=== PATIENT | male | born 1945 | race Caucasian/White ===

== ENCOUNTER → 2016-12-05 | Outpatient (REF) | payer MEDICARE, OTHER ==
[2016-12-05 16:50] LABS: BASO % 0.4 % (0.0-1.0); EOS # 0.1 K/mm3 (0.0-0.50); EOS % 1.9 % (0.0-3.0); LARGE UNSTAINED CELL # 0.1 K/mm3 (0.0-0.4); LARGE UNSTAINED CELL % 1.7 % (0.0-4.0); LYMPH # 2.3 K/mm3 (1.5-4.5); LYMPH % 36.2 % (24.0-44.0); MEAN CORPUSCULAR HEMOGLOBIN 32.9 pg (27.0-33.0); MEAN CORPUSCULAR HGB CONC 34.3 g/dl (32.0-36.5); MEAN CORPUSCULAR VOLUME 95.9 fl (80.0-96.0); MONO # 0.3 K/mm3 (0.0-0.8); MONO % 5.4 % (0.0-5.0); NEUTROPHILS # 3.4 K/mm3 (1.8-7.7); NEUTROPHILS % 54.4 % (36.0-66.0); PLATELET COUNT, AUTOMATED 238 k/mm3 (150-450); WHITE BLOOD COUNT 6.2 K/mm3 (4.0-10.0)
[2016-12-05 18:06] LABS: ALBUMIN 3.5 GM/DL (3.2-5.2); ALBUMIN/GLOBULIN RATIO 1.13 (1.00-1.93); ALKALINE PHOSPHATASE 75 U/L (45-117); ALT/SGPT 28 U/L (12-78); ANION GAP 7 MEQ/L (8-16); AST/SGOT 17 U/L (15-37); BILIRUBIN,TOTAL 0.5 MG/DL (0.2-1.0); BLOOD UREA NITROGEN 15 MG/DL (7-18); CALCIUM LEVEL 8.6 MG/DL (8.8-10.2); CARBON DIOXIDE LEVEL 27 MEQ/L (21-32); CHLORIDE LEVEL 109 MEQ/L (98-107); CHOLESTEROL LEVEL 176 MG/DL (<200); CREATININE FOR GFR 0.89 MG/DL (0.70-1.30); FREE T4 0.89 NG/DL (0.76-1.46); GLOMERULAR FILTRATION RATE > 60.0 (>42); GLUCOSE, FASTING 101 MG/DL (83-110); POTASSIUM SERUM 4.2 MEQ/L (3.5-5.1); SODIUM LEVEL 143 MEQ/L (136-145); TOTAL PROTEIN 6.6 GM/DL (6.4-8.2); TRIGLYCERIDES LEVEL 55 MG/DL (<150)
== END ==
LOC: M SFHCCAPE 10:44
PROVIDERS: ATTEND Physician Assistant
DX: R42 Dizziness and giddiness (principal); R11.0 Nausea; Z79.899 Other long term (current) drug therapy

== ENCOUNTER → 2017-04-20 | Outpatient (REF) | payer MEDICARE, OTHER | LOC: M SMT 17:12 | PROVIDERS: ATTEND Urology | DX: Z12.5 Encounter for screening for malignant neoplasm of prostate (principal) | CPT/HCPCS: 36415; G0103 ==

== ENCOUNTER → 2017-05-08 | Outpatient (REF) | payer MEDICARE, OTHER | LOC: M SMT 17:01 | PROVIDERS: ATTEND Urology | DX: Z85.51 Personal history of malignant neoplasm of bladder (principal) ==

== ENCOUNTER → 2017-05-11 | Outpatient (REF) | payer MEDICARE, OTHER ==
[2017-05-11 17:35] LABS: BASO % 0.3 % (0.0-1.0); EOS # 0.1 10^3/uL (0.0-0.50); EOS % 0.9 % (0.0-3.0); IMMATURE GRANULOCYTE % 0.6 % (0-0); LYMPH % 21.7 % (24.0-44.0); MEAN CORPUSCULAR HGB CONC 34.1 g/dl (32.0-36.5); MEAN CORPUSCULAR VOLUME 90.9 fl (80.0-96.0); MONO # 0.7 10^3/uL (0.0-0.8); MONO % 7.9 % (0.0-5.0); NEUTROPHILS # 6.2 10^3/uL (1.8-7.7); NEUTROPHILS % 68.6 % (36.0-66.0); PLATELET COUNT, AUTOMATED 316 10^3/uL (150-450); RED CELL DISTRIBUTION WIDTH 14.2 % (11.5-14.5)
[2017-05-11 18:20] LABS: VITAMIN B12 LEVEL > 2000 PG/ML (247-911)
[2017-05-11 18:26] LABS: ALBUMIN 3.8 GM/DL (3.2-5.2); ALBUMIN/GLOBULIN RATIO 1.09 (1.00-1.93); ALKALINE PHOSPHATASE 86 U/L (45-117); ALT/SGPT 18 U/L (12-78); ANION GAP 12 MEQ/L (8-16); AST/SGOT 14 U/L (7-37); BILIRUBIN,TOTAL 0.7 MG/DL (0.2-1.0); BLOOD UREA NITROGEN 14 MG/DL (7-18); CARBON DIOXIDE LEVEL 24 MEQ/L (21-32); CHLORIDE LEVEL 103 MEQ/L (98-107); GLOMERULAR FILTRATION RATE > 60.0 (>42); GLUCOSE, FASTING 123 MG/DL (83-110); POTASSIUM SERUM 3.8 MEQ/L (3.5-5.1); SODIUM LEVEL 139 MEQ/L (136-145); THYROXINE (T4) 7.3 UG/DL (4.5-12.0); TOTAL PROTEIN 7.3 GM/DL (6.4-8.2)
== END ==
LOC: M SFHCCAPE 11:14
PROVIDERS: ATTEND Family Medicine
DX: I10 Essential (primary) hypertension (principal); Z13.21 Encounter for screening for nutritional disorder

== ENCOUNTER → 2017-11-15 | Outpatient (REF) | payer MEDICARE, OTHER ==
[2017-11-15 16:42] LABS: BASO % 0.4 % (0.0-1.0); EOS # 0.1 10^3/uL (0.0-0.50); EOS % 1.5 % (0.0-3.0); HEMATOCRIT 41.2 % (42.0-52.0); HEMOGLOBIN 13.6 g/dl (13.5-17.5); IMMATURE GRANULOCYTE % 0.4 % (0-3.0); LYMPH # 1.8 10^3/uL (1.5-4.5); LYMPH % 21.4 % (24.0-44.0); MEAN CORPUSCULAR VOLUME 93.8 fl (80.0-96.0); MONO # 0.7 10^3/uL (0.0-0.8); NEUTROPHILS # 5.6 10^3/uL (1.8-7.7); NEUTROPHILS % 68.3 % (36.0-66.0); PLATELET COUNT, AUTOMATED 286 10^3/uL (150-450); RED BLOOD COUNT 4.39 10^6/uL (4.30-6.10); RED CELL DISTRIBUTION WIDTH 13.2 % (11.5-14.5); WHITE BLOOD COUNT 8.2 10^3/uL (4.0-10.0)
[2017-11-15 16:56] LABS: VITAMIN B12 LEVEL 859 PG/ML (247-911)
[2017-11-15 17:01] LABS: ALBUMIN 3.7 GM/DL (3.2-5.2); ALBUMIN/GLOBULIN RATIO 1.28 (1.00-1.93); ALKALINE PHOSPHATASE 68 U/L (45-117); ALT/SGPT 22 U/L (12-78); ANION GAP 9 MEQ/L (8-16); AST/SGOT 14 U/L (7-37); BILIRUBIN,TOTAL 0.7 MG/DL (0.2-1.0); BLOOD UREA NITROGEN 13 MG/DL (7-18); CALCIUM LEVEL 8.8 MG/DL (8.8-10.2); CARBON DIOXIDE LEVEL 26 MEQ/L (21-32); CHLORIDE LEVEL 105 MEQ/L (98-107); CREATININE FOR GFR 1.01 MG/DL (0.70-1.30); GLOMERULAR FILTRATION RATE > 60.0 (>42); GLUCOSE, FASTING 116 MG/DL (70-100); POTASSIUM SERUM 3.8 MEQ/L (3.5-5.1); SODIUM LEVEL 140 MEQ/L (136-145); TOTAL PROTEIN 6.6 GM/DL (6.4-8.2)
== END ==
LOC: M SFHCCAPE 09:45
DX: I10 Essential (primary) hypertension (principal); R53.83 Other fatigue; R61 Generalized hyperhidrosis; R53.82 Chronic fatigue, unspecified
CPT/HCPCS: 84443

== ENCOUNTER → 2018-03-01 | Outpatient (REF) | payer MEDICARE, OTHER ==
[2018-03-02 11:33] LABS: BASO % 0.6 % (0.0-1.0); EOS # 0.2 10^3/uL (0.0-0.50); EOS % 2.3 % (0.0-3.0); HEMATOCRIT 42.9 % (42.0-52.0); IMMATURE GRANULOCYTE % 0.3 % (0-3.0); LYMPH % 28.4 % (24.0-44.0); MEAN CORPUSCULAR HGB CONC 32.6 g/dl (32.0-36.5); MEAN CORPUSCULAR VOLUME 95.1 fl (80.0-96.0); MONO # 0.7 10^3/uL (0.0-0.8); MONO % 9.6 % (0.0-5.0); NEUTROPHILS # 4.1 10^3/uL (1.8-7.7); NEUTROPHILS % 58.8 % (36.0-66.0); PLATELET COUNT, AUTOMATED 269 10^3/uL (150-450); RED BLOOD COUNT 4.51 10^6/uL (4.30-6.10); WHITE BLOOD COUNT 6.9 10^3/uL (4.0-10.0)
[2018-03-02 13:01] LABS: ALBUMIN 3.5 GM/DL (3.2-5.2); ALBUMIN/GLOBULIN RATIO 1.09 (1.00-1.93); ALKALINE PHOSPHATASE 82 U/L (45-117); ALT/SGPT 24 U/L (12-78); ANION GAP 10 MEQ/L (8-16); AST/SGOT 17 U/L (7-37); BILIRUBIN,TOTAL 0.4 MG/DL (0.2-1.0); BLOOD UREA NITROGEN 18 MG/DL (7-18); CALCIUM LEVEL 8.9 MG/DL (8.8-10.2); CARBON DIOXIDE LEVEL 27 MEQ/L (21-32); CHLORIDE LEVEL 106 MEQ/L (98-107); CREATININE FOR GFR 0.95 MG/DL (0.70-1.30); GLOMERULAR FILTRATION RATE > 60.0 (>42); GLUCOSE, FASTING 87 MG/DL (70-100); MAGNESIUM LEVEL 2.1 MG/DL (1.8-2.4); POTASSIUM SERUM 4.4 MEQ/L (3.5-5.1); SODIUM LEVEL 143 MEQ/L (136-145); TOTAL PROTEIN 6.7 GM/DL (6.4-8.2)
[2018-03-02 14:36] LABS: ESTIMATED AVERAGE GLUCOSE 108 MG/DL (60-110); HEMOGLOBIN A1c 5.4 %
== END ==
LOC: M SFHCCLAY 13:54
DX: R73.01 Impaired fasting glucose (principal); I10 Essential (primary) hypertension; A09 Infectious gastroenteritis and colitis, unspecified
CPT/HCPCS: 83735

== ENCOUNTER → 2018-03-09 | Outpatient (REF) | payer MEDICARE, OTHER | LOC: M LAB REF 17:43 | DX: R19.7 Diarrhea, unspecified (principal) | CPT/HCPCS: 87507 ==

== ENCOUNTER → 2018-05-08 | Outpatient (REF) | payer MEDICARE, OTHER | LOC: M SMT 18:00 | DX: Z85.51 Personal history of malignant neoplasm of bladder (principal) | CPT/HCPCS: 88108 ==

== ENCOUNTER → 2018-08-28 | Outpatient (REF) | payer MEDICARE, OTHER ==
[2018-08-28 16:47] LABS: BASO % 0.6 % (0.0-1.0); EOS # 0.2 10^3/uL (0.0-0.50); EOS % 3.9 % (0.0-3.0); HEMATOCRIT 41.3 % (42.0-52.0); HEMOGLOBIN 13.7 g/dl (13.5-17.5); LYMPH # 1.9 10^3/uL (1.5-4.5); LYMPH % 30.9 % (24.0-44.0); MEAN CORPUSCULAR HEMOGLOBIN 31.1 pg (27.0-33.0); MEAN CORPUSCULAR HGB CONC 33.2 g/dl (32.0-36.5); MEAN CORPUSCULAR VOLUME 93.7 fl (80.0-96.0); MONO # 0.7 10^3/uL (0.0-0.8); MONO % 10.8 % (0.0-5.0); NEUTROPHILS # 3.3 10^3/uL (1.8-7.7); NEUTROPHILS % 53.5 % (36.0-66.0); PLATELET COUNT, AUTOMATED 237 10^3/uL (150-450); RED BLOOD COUNT 4.41 10^6/uL (4.30-6.10); WHITE BLOOD COUNT 6.2 10^3/uL (4.0-10.0)
[2018-08-28 16:57] LABS: ALBUMIN 3.3 GM/DL (3.2-5.2); ALT/SGPT 21 U/L (12-78); BILIRUBIN,TOTAL 0.4 MG/DL (0.2-1.0); BLOOD UREA NITROGEN 18 MG/DL (7-18); CALCIUM LEVEL 8.5 MG/DL (8.8-10.2); CARBON DIOXIDE LEVEL 27 MEQ/L (21-32); CHLORIDE LEVEL 109 MEQ/L (98-107); CHOLESTEROL LEVEL 226 MG/DL (<200); CHOLESTEROL RISK RATIO 4.264 (<5); CREATININE FOR GFR 0.95 MG/DL (0.70-1.30); GLOMERULAR FILTRATION RATE > 60.0 (>42); GLUCOSE, FASTING 99 MG/DL (70-100); HDL CHOLESTEROL 53 MG/DL (>40); LDL CHOLESTEROL 151 MG/DL (<100); NON-HDL-C 173 MG/DL; POTASSIUM SERUM 4.1 MEQ/L (3.5-5.1); SODIUM LEVEL 143 MEQ/L (136-145); TOTAL PROTEIN 6.1 GM/DL (6.4-8.2); TRIGLYCERIDES LEVEL 111 MG/DL (<150)
[2018-08-28 17:35] LABS: HEMOGLOBIN A1c 5.6 %
== END ==
LOC: M SFHCCAPE 07:16
PROVIDERS: ATTEND Family Medicine
DX: I10 Essential (primary) hypertension (principal); R53.82 Chronic fatigue, unspecified; R73.01 Impaired fasting glucose; E78.5 Hyperlipidemia, unspecified

== ENCOUNTER → 2018-10-31 | Outpatient (REF) | payer MEDICARE, OTHER | LOC: M LAB REF 16:45 | PROVIDERS: ATTEND Internal Medicine Gastroenterology | DX: R19.7 Diarrhea, unspecified (principal) ==

== ENCOUNTER → 2019-02-27 | Outpatient (REF) | payer MEDICARE, OTHER ==
[2019-02-27 17:24] LABS: ALBUMIN 3.5 GM/DL (3.2-5.2); ALT/SGPT 24 U/L (12-78); BILIRUBIN,TOTAL 0.5 MG/DL (0.2-1.0); BLOOD UREA NITROGEN 12 MG/DL (7-18); CALCIUM LEVEL 8.9 MG/DL (8.8-10.2); CARBON DIOXIDE LEVEL 26 MEQ/L (21-32); CHLORIDE LEVEL 110 MEQ/L (98-107); CHOLESTEROL LEVEL 233 MG/DL (<200); CHOLESTEROL RISK RATIO 4.854 (<5); CREATININE FOR GFR 0.94 MG/DL (0.70-1.30); GLOMERULAR FILTRATION RATE > 60.0 (>42); GLUCOSE, FASTING 118 MG/DL (70-100); HDL CHOLESTEROL 48 MG/DL (>40); LDL CHOLESTEROL 151 MG/DL (<100); NON-HDL-C 185 MG/DL; POTASSIUM SERUM 4.1 MEQ/L (3.5-5.1); SODIUM LEVEL 143 MEQ/L (136-145); TOTAL PROTEIN 6.2 GM/DL (6.4-8.2); TRIGLYCERIDES LEVEL 168 MG/DL (<150)
[2019-02-27 17:56] LABS: HEMOGLOBIN A1c 5.6 %
== END ==
LOC: M SFHCCAPE 08:44
PROVIDERS: ATTEND Family Medicine
DX: I10 Essential (primary) hypertension (principal); R73.01 Impaired fasting glucose; E78.2 Mixed hyperlipidemia

== ENCOUNTER → 2019-03-09 | Outpatient (CLI) | payer MEDICARE, OTHER ==
--- NOTE | 2019-03-10 09:01 | REP ---
LUMBAR SPINE COMPLETE: 03/09/2019. Clinical history: Spondylosis. Back pain. Findings: No prior study. Five views provided. Pedicles, spinous and transverse processes were intact throughout. There is calcified atheroma in the aorta with some tortuosity but no aneurysm. A few pelvic phleboliths are seen in the pelvis. The sacrum, foramina and SI joints symmetric. Hip joint spaces show some mild narrowing and spur formation at the acetabular roof. The lower thoracic levels and ribs grossly intact. Oblique images show facet arthropathy but no spondylolysis or spondylolisthesis. There is disc space narrowing at L5-S1 while the other disc space heights and all vertebral body heights are intact. Anterior osteophytes are seen at all levels from L1-2 through L5-S1. Impression: 1. Lumbar spondylosis L1 - 2 through L5-S1 without compression deformity narrowing at L5-S1. 2. Facet arthropathy lower lumbar spine. No compression fracture. Electronically Signed by Otilio Walton MD 03/10/2019 01:05 P
== END ==
LOC: M WUC 13:57
PROVIDERS: ATTEND Nurse Practitioner Family
DX: M47.816 Spondylosis without myelopathy or radiculopathy, lumbar region (principal)

== ENCOUNTER → 2019-04-29 | Outpatient (REF) | payer MEDICARE, OTHER ==
[2019-04-30 11:49] LABS: BASO % 0.4 % (0.0-1.0); EOS # 0.1 10^3/uL (0.0-0.5); EOS % 1.1 % (0.0-3.0); HEMATOCRIT 47.3 % (42.0-52.0); HEMOGLOBIN 15.3 g/dl (13.5-17.5); LYMPH # 2.6 10^3/uL (1.5-5.0); LYMPH % 27.8 % (24.0-44.0); MEAN CORPUSCULAR HEMOGLOBIN 31.4 pg (27.0-33.0); MEAN CORPUSCULAR HGB CONC 32.3 g/dl (32.0-36.5); MEAN CORPUSCULAR VOLUME 97.1 fl (80.0-96.0); MONO % 10.2 % (0.0-5.0); NEUTROPHILS # 5.6 10^3/uL (1.5-8.5); NEUTROPHILS % 60.2 % (36.0-66.0); PLATELET COUNT, AUTOMATED 273 10^3/uL (150-450); RED BLOOD COUNT 4.87 10^6/uL (4.30-6.10); WHITE BLOOD COUNT 9.3 10^3/uL (4.0-10.0)
[2019-04-30 11:55] LABS: ALT/SGPT 32 U/L (12-78); BILIRUBIN,TOTAL 0.9 MG/DL (0.2-1.0); BLOOD UREA NITROGEN 14 MG/DL (7-18); CARBON DIOXIDE LEVEL 31 MEQ/L (21-32); CHLORIDE LEVEL 104 MEQ/L (98-107); CHOLESTEROL LEVEL 162 MG/DL (<200); CREATININE FOR GFR 1.04 MG/DL (0.70-1.30); GLOMERULAR FILTRATION RATE > 60.0 (>42); GLUCOSE, FASTING 109 MG/DL (70-100); POTASSIUM SERUM 4.4 MEQ/L (3.5-5.1); SODIUM LEVEL 142 MEQ/L (136-145); TRIGLYCERIDES LEVEL 126 MG/DL (<150)
[2019-04-30 11:56] LABS: ALBUMIN 3.8 GM/DL (3.2-5.2); CHOLESTEROL RISK RATIO 2.281 (<5); HDL CHOLESTEROL 71 MG/DL (>40); LDL CHOLESTEROL 66 MG/DL (<100); NON-HDL-C 91 MG/DL; TOTAL PROTEIN 6.9 GM/DL (6.4-8.2)
[2019-04-30 12:09] LABS: HEMOGLOBIN A1c 5.6 %
== END ==
LOC: M SFHCCLAY 14:50
PROVIDERS: ATTEND Family Medicine
DX: E78.2 Mixed hyperlipidemia (principal); I10 Essential (primary) hypertension; R73.01 Impaired fasting glucose
CPT/HCPCS: 80053; 80061; 83036; 85025; G0463

== ENCOUNTER → 2019-05-07 | Outpatient (REF) | payer MEDICARE, OTHER | LOC: M SMT 13:11 | PROVIDERS: ATTEND Urology | DX: Z85.51 Personal history of malignant neoplasm of bladder (principal) ==

== ENCOUNTER → 2019-06-25 | Outpatient (REF) | payer MEDICARE, OTHER | LOC: M LABDRAWC 16:11 | PROVIDERS: ATTEND Urology | DX: Z12.5 Encounter for screening for malignant neoplasm of prostate (principal); Z85.51 Personal history of malignant neoplasm of bladder | CPT/HCPCS: 36415; 88108; G0103 ==

== ENCOUNTER → 2019-06-27 | Outpatient (REF) | payer MEDICARE, OTHER ==
[2019-06-27 16:33] LABS: APPEARANCE, URINE HAZY (CLEAR); BACTERIA, URINE AUTO NEGATIVE (NEGATIVE); BILIRUBIN, URINE AUTO NEGATIVE (NEGATIVE); BLOOD, URINE BLOOD NEGATIVE (NEGATIVE); COLOR, URINE AMBER (YELLOW); GLUCOSE, URINE (UA) AUTO NEGATIVE (NEGATIVE); KETONE, URINE AUTO NEGATIVE (NEGATIVE); LEUKOCYTE ESTERASE, URINE AUTO NEGATIVE (NEGATIVE); MUCUS, URINE SMALL (NEGATIVE); NITRITE, URINE AUTO NEGATIVE (NEGATIVE); PROTEIN, URINE AUTO NEGATIVE (NEGATIVE); RBC, URINE AUTO 1 /HPF (0-3); SPECIFIC GRAVITY URINE AUTO 1.013 (1.002-1.035); SQUAMOUS EPITHELIAL CELL UR AU 0 /HPF (0-6); UROBILINOGEN, URINE AUTO 0.2 mg/dL (0.0-2.0); WBC, URINE AUTO 1 /HPF (0-3)
== END ==
LOC: M LABSMT 13:13
PROVIDERS: ATTEND Urology
DX: R30.0 Dysuria (principal)

== ENCOUNTER → 2020-03-26 | Outpatient (REF) | payer MEDICARE, OTHER ==
[2020-03-26 16:12] LABS: BASO % 0.4 % (0.0-1.0); EOS # 0.1 10^3/uL (0.0-0.5); EOS % 1.7 % (0.0-3.0); HEMATOCRIT 42.3 % (42.0-52.0); HEMOGLOBIN 13.5 g/dl (13.5-17.5); LYMPH # 2.2 10^3/uL (1.5-5.0); LYMPH % 28.8 % (24.0-44.0); MEAN CORPUSCULAR HEMOGLOBIN 30.2 pg (27.0-33.0); MEAN CORPUSCULAR HGB CONC 31.9 g/dl (32.0-36.5); MEAN CORPUSCULAR VOLUME 94.6 fl (80.0-96.0); MONO # 0.8 10^3/uL (0.0-0.8); NEUTROPHILS # 4.5 10^3/uL (1.5-8.5); NEUTROPHILS % 58.6 % (36.0-66.0); PLATELET COUNT, AUTOMATED 249 10^3/uL (150-450); RED BLOOD COUNT 4.47 10^6/uL (4.30-6.10); WHITE BLOOD COUNT 7.7 10^3/uL (4.0-10.0)
[2020-03-26 16:39] LABS: ALBUMIN 3.4 GM/DL (3.2-5.2); ALT/SGPT 30 U/L (12-78); BILIRUBIN,TOTAL 0.6 MG/DL (0.2-1.0); BLOOD UREA NITROGEN 16 MG/DL (7-18); CALCIUM LEVEL 8.8 MG/DL (8.8-10.2); CARBON DIOXIDE LEVEL 25 MEQ/L (21-32); CHLORIDE LEVEL 106 MEQ/L (98-107); CHOLESTEROL LEVEL 197 MG/DL (<200); CHOLESTEROL RISK RATIO 3.229 (<5); CREATININE FOR GFR 1.06 MG/DL (0.70-1.30); GLOMERULAR FILTRATION RATE > 60.0 (>42); GLUCOSE, FASTING 92 MG/DL (70-100); HDL CHOLESTEROL 61 MG/DL (>40); LDL CHOLESTEROL 102 MG/DL (<100); NON-HDL-C 136 MG/DL; POTASSIUM SERUM 4.7 MEQ/L (3.5-5.1); SODIUM LEVEL 137 MEQ/L (136-145); TOTAL PROTEIN 6.5 GM/DL (6.4-8.2); TRIGLYCERIDES LEVEL 168 MG/DL (<150)
[2020-03-26 17:27] LABS: HEMOGLOBIN A1c 5.5 %
== END ==
LOC: M SFHCCLAY 13:23
PROVIDERS: ATTEND Family Medicine
DX: R73.01 Impaired fasting glucose (principal); E78.2 Mixed hyperlipidemia

== ENCOUNTER → 2020-05-20 | Outpatient (REF) | payer MEDICARE, OTHER | LOC: M SMT 13:14 | PROVIDERS: ATTEND Urology | DX: Z85.51 Personal history of malignant neoplasm of bladder (principal) ==

== ENCOUNTER → 2020-05-21 | Outpatient (REF) | payer MEDICARE, OTHER | LOC: M LABDRAWC 15:31 | PROVIDERS: ATTEND Urology | DX: N52.9 Male erectile dysfunction, unspecified (principal); Z85.51 Personal history of malignant neoplasm of bladder ==

== ENCOUNTER → 2020-11-02 | Outpatient (CLI) | payer MEDICARE, OTHER | LOC: M CARPUL 08:52 | PROVIDERS: ATTEND Family Medicine | DX: I50.9 Heart failure, unspecified (principal) ==

== ENCOUNTER → 2020-12-15 | Outpatient (REF) | payer MEDICARE, OTHER ==
[2020-12-15 17:33] LABS: APPEARANCE, URINE CLEAR (CLEAR); BACTERIA, URINE AUTO NEGATIVE (NEGATIVE); BILIRUBIN, URINE AUTO NEGATIVE (NEGATIVE); BLOOD, URINE BLOOD NEGATIVE (NEGATIVE); COLOR, URINE YELLOW (YELLOW); GLUCOSE, URINE (UA) AUTO NEGATIVE (NEGATIVE); KETONE, URINE AUTO NEGATIVE (NEGATIVE); LEUKOCYTE ESTERASE, URINE AUTO NEGATIVE (NEGATIVE); MUCUS, URINE SMALL (NEGATIVE); NITRITE, URINE AUTO NEGATIVE (NEGATIVE); PROTEIN, URINE AUTO NEGATIVE (NEGATIVE); RBC, URINE AUTO 0 /HPF (0-3); SPECIFIC GRAVITY URINE AUTO 1.006 (1.002-1.035); SQUAMOUS EPITHELIAL CELL UR AU 0 /HPF (0-6); UROBILINOGEN, URINE AUTO 0.2 mg/dL (0.0-2.0); WBC, URINE AUTO 0 /HPF (0-3)
== END ==
LOC: M LAB REF 16:00
PROVIDERS: ATTEND Physician Assistant
DX: R60.9 Edema, unspecified (principal)

== ENCOUNTER → 2020-12-24 | Outpatient (REF) | payer MEDICARE, OTHER | LOC: M LAB REF 15:57 | PROVIDERS: ATTEND Internal Medicine Gastroenterology | DX: R19.7 Diarrhea, unspecified (principal); K52.831 Collagenous colitis ==

== ENCOUNTER → 2021-02-24 | Outpatient (REF) | payer MEDICARE, OTHER ==
[2021-02-24 16:11] LABS: BASO % 0.3 % (0.0-1.0); EOS # 0.1 10^3/uL (0.0-0.5); HEMATOCRIT 38.1 % (42.0-52.0); HEMOGLOBIN 12.4 g/dl (13.5-17.5); LYMPH # 2.1 10^3/uL (1.5-5.0); LYMPH % 34.8 % (24.0-44.0); MEAN CORPUSCULAR HEMOGLOBIN 30.6 pg (27.0-33.0); MEAN CORPUSCULAR HGB CONC 32.5 g/dl (32.0-36.5); MEAN CORPUSCULAR VOLUME 94.1 fl (80.0-96.0); MONO # 0.6 10^3/uL (0.0-0.8); MONO % 9.4 % (2.0-8.0); NEUTROPHILS # 3.3 10^3/uL (1.5-8.5); NEUTROPHILS % 53.2 % (36.0-66.0); PLATELET COUNT, AUTOMATED 251 10^3/uL (150-450); RED BLOOD COUNT 4.05 10^6/uL (4.30-6.10); WHITE BLOOD COUNT 6.2 10^3/uL (4.0-10.0)
[2021-02-24 16:15] LABS: ALBUMIN 3.1 GM/DL (3.2-5.2); ALT/SGPT 32 U/L (12-78); BILIRUBIN,TOTAL 0.6 MG/DL (0.2-1.0); BLOOD UREA NITROGEN 23 MG/DL (7-18); CARBON DIOXIDE LEVEL 32 MEQ/L (21-32); CHLORIDE LEVEL 106 MEQ/L (98-107); CHOLESTEROL LEVEL 163 MG/DL (<200); CHOLESTEROL RISK RATIO 3.975 (<5); CREATININE FOR GFR 1.06 MG/DL (0.70-1.30); GLOMERULAR FILTRATION RATE > 60.0 (>42); GLUCOSE, FASTING 103 MG/DL (70-100); HDL CHOLESTEROL 41 MG/DL (>40); LDL CHOLESTEROL 96 MG/DL (<100); NON-HDL-C 122 MG/DL; POTASSIUM SERUM 4.1 MEQ/L (3.5-5.1); SODIUM LEVEL 145 MEQ/L (136-145); TOTAL PROTEIN 6.3 GM/DL (6.4-8.2); TRIGLYCERIDES LEVEL 131 MG/DL (<150)
[2021-02-24 16:51] LABS: HEMOGLOBIN A1c 5.7 %
== END ==
LOC: M SFHCCAPE 07:44
PROVIDERS: ATTEND Physician Assistant
DX: Z12.5 Encounter for screening for malignant neoplasm of prostate (principal); I10 Essential (primary) hypertension; R73.01 Impaired fasting glucose
CPT/HCPCS: 36415; 80053; 80061; 83036; 84443; 85025; G0103

== ENCOUNTER → 2021-03-29 | Outpatient (REF) | payer MEDICARE, OTHER ==
[2021-03-29 16:24] LABS: BASO # 0.1 10^3/uL (0.0-0.2); BASO % 0.5 % (0.0-1.0); EOS # 0.4 10^3/uL (0.0-0.5); EOS % 4.4 % (0.0-3.0); HEMATOCRIT 41.1 % (42.0-52.0); HEMOGLOBIN 13.7 g/dl (13.5-17.5); LYMPH # 2.4 10^3/uL (1.5-5.0); LYMPH % 25.2 % (24.0-44.0); MEAN CORPUSCULAR HEMOGLOBIN 30.7 pg (27.0-33.0); MEAN CORPUSCULAR HGB CONC 33.3 g/dl (32.0-36.5); MEAN CORPUSCULAR VOLUME 92.2 fl (80.0-96.0); MONO # 0.8 10^3/uL (0.0-0.8); MONO % 8.2 % (2.0-8.0); NEUTROPHILS # 5.8 10^3/uL (1.5-8.5); NEUTROPHILS % 61.3 % (36.0-66.0); PLATELET COUNT, AUTOMATED 249 10^3/uL (150-450); RED BLOOD COUNT 4.46 10^6/uL (4.30-6.10); WHITE BLOOD COUNT 9.4 10^3/uL (4.0-10.0)
[2021-03-29 16:59] LABS: ALBUMIN 3.3 GM/DL (3.2-5.2); ALT/SGPT 32 U/L (12-78); BILIRUBIN,TOTAL 0.5 MG/DL (0.2-1.0); BLOOD UREA NITROGEN 16 MG/DL (7-18); CALCIUM LEVEL 8.7 MG/DL (8.8-10.2); CARBON DIOXIDE LEVEL 29 MEQ/L (21-32); CHLORIDE LEVEL 107 MEQ/L (98-107); CREATININE FOR GFR 1.08 MG/DL (0.70-1.30); FERRITIN 54 NG/ML (26-388); GLOMERULAR FILTRATION RATE > 60.0 (>42); GLUCOSE, FASTING 119 MG/DL (70-100); IRON (FE) 54 UG/DL (65-175); PERCENT SATURATION 14.6 % (19.7-50.0); POTASSIUM SERUM 4.2 MEQ/L (3.5-5.1); SODIUM LEVEL 141 MEQ/L (136-145); TOTAL IRON BINDING CAPACITY 371 UG/DL (250-450); TOTAL PROTEIN 6.4 GM/DL (6.4-8.2); VITAMIN B12 LEVEL 654 PG/ML
== END ==
LOC: M SFHCCAPE 08:47
PROVIDERS: ATTEND Physician Assistant
DX: D64.9 Anemia, unspecified (principal)

== ENCOUNTER → 2021-05-17 | Outpatient (CLI) | payer MEDICARE, OTHER ==
--- NOTE | 2021-05-17 16:58 | REP ---
INDICATION: STRAIN MSL/TND LNG FLXR MSL TOE AT ANK/FT LEV, R F. COMPARISON: None. TECHNIQUE: Multiple sequences are obtained in the axial, coronal and sagittal planes. FINDINGS: The Achilles, anterior tibial, posterior tibial, flexor hallucis longus, flexor digitorum longus and peroneal tendons are all intact without significant tenosynovitis. The anterior and posterior talofibular, calcaneofibular and deltoid ligaments appear intact. Plantar tendon appears intact. There is no plantar fasciitis. Sinus tarsi appears unremarkable. There is a small tibiotalar joint effusion.. There is diffuse moderate superficial soft tissue edema. The cartilaginous surfaces are smooth. No osteochondral defect is seen at the tibiotalar joint. There is periarticular marrow edema in the inferior talus, superior calcaneus, medial navicular, middle cuneiform bone medially, and in the lateral cuneiform. I suspect this represents reactive and stress related change along the joints. IMPRESSION: Diffuse moderate superficial soft tissue edema. Periarticular marrow edema involving the inferior talus, superior calcaneus, medial navicular, middle cuneiform and lateral cuneiform. This may represent reactive marrow edema from arthritic change or stress related marrow edema along the joints. <Electronically signed by David Malik > 05/17/21 [id number]
== END ==
LOC: M PLAIMG 15:06
PROVIDERS: ATTEND Podiatrist
DX: S96.011A Strain of muscle and tendon of long flexor muscle of toe at ankle and foot level, right foot, initial encounter (principal); X58.XXXA Exposure to other specified factors, initial encounter; Y92.9 Unspecified place or not applicable; Y93.9 Activity, unspecified; Y99.9 Unspecified external cause status

== ENCOUNTER → 2021-05-28 | Outpatient (REF) | payer MEDICARE, OTHER | LOC: M SMT 13:04 | PROVIDERS: ATTEND Urology | DX: Z85.51 Personal history of malignant neoplasm of bladder (principal) ==

== ENCOUNTER → 2021-06-21 | Outpatient (REF) | payer MEDICARE, OTHER ==
[2021-06-21 15:47] LABS: BASO # 0.1 10^3/uL (0.0-0.2); BASO % 0.8 % (0.0-1.0); EOS # 0.2 10^3/uL (0.0-0.5); EOS % 2.9 % (0.0-3.0); HEMATOCRIT 41.2 % (42.0-52.0); HEMOGLOBIN 13.4 g/dl (13.5-17.5); LYMPH % 41.7 % (24.0-44.0); MEAN CORPUSCULAR HGB CONC 32.5 g/dl (32.0-36.5); MEAN CORPUSCULAR VOLUME 92.2 fl (80.0-96.0); MONO # 0.7 10^3/uL (0.0-0.8); MONO % 9.4 % (2.0-8.0); NEUTROPHILS # 3.3 10^3/uL (1.5-8.5); NEUTROPHILS % 44.9 % (36.0-66.0); PLATELET COUNT, AUTOMATED 257 10^3/uL (150-450); RED BLOOD COUNT 4.47 10^6/uL (4.30-6.10); WHITE BLOOD COUNT 7.3 10^3/uL (4.0-10.0)
[2021-06-21 16:16] LABS: ALT/SGPT 40 U/L (12-78); BILIRUBIN,TOTAL 0.3 MG/DL (0.2-1.0); BLOOD UREA NITROGEN 21 MG/DL (7-18); CALCIUM LEVEL 8.9 MG/DL (8.8-10.2); CARBON DIOXIDE LEVEL 35 MEQ/L (21-32); CHLORIDE LEVEL 100 MEQ/L (98-107); CREATININE FOR GFR 1.12 MG/DL (0.70-1.30); GLOMERULAR FILTRATION RATE > 60.0 (>42); GLUCOSE, FASTING 109 MG/DL (70-100); POTASSIUM SERUM 4.1 MEQ/L (3.5-5.1); SODIUM LEVEL 139 MEQ/L (136-145)
[2021-06-21 16:17] LABS: ALBUMIN 3.5 GM/DL (3.2-5.2); CHOLESTEROL LEVEL 187 MG/DL (<200); CHOLESTEROL RISK RATIO 3.895 (<5); FERRITIN 85 NG/ML (26-388); HDL CHOLESTEROL 48 MG/DL (>40); IRON (FE) 46 UG/DL (65-175); LDL CHOLESTEROL 113 MG/DL (<100); NON-HDL-C 139 MG/DL; PERCENT SATURATION 13.5 % (19.7-50.0); TOTAL 25(OH) VITAMIN D 93.3 NG/ML (30.0-100.0); TOTAL IRON BINDING CAPACITY 340 UG/DL (250-450); TOTAL PROTEIN 6.7 GM/DL (6.4-8.2); TRIGLYCERIDES LEVEL 132 MG/DL (<150)
[2021-06-21 16:23] LABS: HEMOGLOBIN A1c 5.8 %
== END ==
LOC: M SFHCCAPE 07:30
PROVIDERS: ATTEND Physician Assistant
DX: Z01.84 Encounter for antibody response examination (principal); E78.5 Hyperlipidemia, unspecified; I10 Essential (primary) hypertension; D50.9 Iron deficiency anemia, unspecified; Z79.899 Other long term (current) drug therapy

== ENCOUNTER → 2021-11-17 | Outpatient (REF) | payer MEDICARE, OTHER | LOC: M LAB REF 17:11 | PROVIDERS: ATTEND Internal Medicine Gastroenterology | DX: R19.7 Diarrhea, unspecified (principal); K52.831 Collagenous colitis ==

== ENCOUNTER → 2021-12-14 | Outpatient (REF) | payer MEDICARE, OTHER ==
[2021-12-14 18:35] LABS: BLOOD UREA NITROGEN 31 MG/DL (7-18); CALCIUM LEVEL 8.8 MG/DL (8.8-10.2); CARBON DIOXIDE LEVEL 30 MEQ/L (21-32); CHLORIDE LEVEL 100 MEQ/L (98-107); CREATININE FOR GFR 0.99 MG/DL (0.70-1.30); GLOMERULAR FILTRATION RATE > 60.0 (>42); GLUCOSE, FASTING 103 MG/DL (70-100); POTASSIUM SERUM 3.1 MEQ/L (3.5-5.1); SODIUM LEVEL 139 MEQ/L (136-145)
== END ==
LOC: M LABDRWCV 17:25
PROVIDERS: ATTEND Nurse Practitioner Family
DX: I10 Essential (primary) hypertension (principal)

== ENCOUNTER → 2021-12-14 | Outpatient (REF) | payer MEDICARE, OTHER ==
[2021-12-14 16:53] LABS: BASO % 0.2 % (0.0-1.0); EOS # 0.1 10^3/uL (0.0-0.5); EOS % 0.9 % (0.0-3.0); HEMATOCRIT 41.5 % (42.0-52.0); HEMOGLOBIN 13.8 g/dl (13.5-17.5); LYMPH % 27.3 % (24.0-44.0); MEAN CORPUSCULAR HEMOGLOBIN 31.3 pg (27.0-33.0); MEAN CORPUSCULAR HGB CONC 33.3 g/dl (32.0-36.5); MEAN CORPUSCULAR VOLUME 94.1 fl (80.0-96.0); MONO # 0.9 10^3/uL (0.0-0.8); MONO % 8.3 % (2.0-8.0); NEUTROPHILS # 6.9 10^3/uL (1.5-8.5); NEUTROPHILS % 62.8 % (36.0-66.0); PLATELET COUNT, AUTOMATED 270 10^3/uL (150-450); RED BLOOD COUNT 4.41 10^6/uL (4.30-6.10)
[2021-12-14 17:12] LABS: HEMOGLOBIN A1c 5.6 %
[2021-12-14 17:23] LABS: ALBUMIN 3.2 GM/DL (3.2-5.2); ALT/SGPT 44 U/L (12-78); BILIRUBIN,TOTAL 0.9 MG/DL (0.2-1.0); BLOOD UREA NITROGEN 32 MG/DL (7-18); CALCIUM LEVEL 8.7 MG/DL (8.8-10.2); CARBON DIOXIDE LEVEL 33 MEQ/L (21-32); CHLORIDE LEVEL 97 MEQ/L (98-107); CHOLESTEROL LEVEL 189 MG/DL (<200); CHOLESTEROL RISK RATIO 2.123 (<5); CREATININE FOR GFR 1.06 MG/DL (0.70-1.30); FERRITIN 178 NG/ML (26-388); GLOMERULAR FILTRATION RATE > 60.0 (>42); GLUCOSE, FASTING 101 MG/DL (70-100); HDL CHOLESTEROL 89 MG/DL (>40); IRON (FE) 100 UG/DL (65-175); LDL CHOLESTEROL 80 MG/DL (<100); NON-HDL-C 100 MG/DL; POTASSIUM SERUM 3.2 MEQ/L (3.5-5.1); SODIUM LEVEL 136 MEQ/L (136-145); THYROID STIMULATING HORMONE 0.583 uIU/ML (0.358-3.740); TOTAL IRON BINDING CAPACITY 270 UG/DL (250-450); TOTAL PROTEIN 6.3 GM/DL (6.4-8.2); TRIGLYCERIDES LEVEL 98 MG/DL (<150)
== END ==
LOC: M SFHCCAPE 08:14
PROVIDERS: ATTEND Physician Assistant
DX: E78.5 Hyperlipidemia, unspecified (principal); I10 Essential (primary) hypertension; D50.9 Iron deficiency anemia, unspecified; R73.09 Other abnormal glucose

== ENCOUNTER → 2021-12-16 | Outpatient (REF) | payer MEDICARE, OTHER | LOC: M SFHCCAPE 09:00 | PROVIDERS: ATTEND Physician Assistant | DX: R19.7 Diarrhea, unspecified (principal) ==

== ENCOUNTER → 2022-01-24 | Outpatient (REF) | payer MEDICARE, OTHER | LOC: M LABDRWCV 16:52 | PROVIDERS: ATTEND Internal Medicine Gastroenterology | DX: R19.7 Diarrhea, unspecified (principal); K52.831 Collagenous colitis; A04.71 Enterocolitis due to Clostridium difficile, recurrent ==

== ENCOUNTER → 2022-02-01 | Outpatient (CLI) | payer MEDICARE, OTHER ==
[~2022-02-01] MED LIST: GASTROGRAFIN SOLUTION 30ML (Q9963) As Ordered ONE; ISOVUE-370 76% 100ML VIAL As Ordered ONE
== END ==
LOC: M RAD 11:56
PROVIDERS: ATTEND Internal Medicine Gastroenterology
DX: K52.831 Collagenous colitis (principal); I51.7 Cardiomegaly; N20.0 Calculus of kidney; N28.1 Cyst of kidney, acquired
CPT/HCPCS: 74178; Q9963; Q9967

== ENCOUNTER → 2022-02-16 | Outpatient (CLI) | payer MEDICARE, OTHER ==
[~2022-02-16] MED LIST changes: -GASTROGRAFIN SOLUTION 30ML (Q9963) As Ordered ONE; -ISOVUE-370 76% 100ML VIAL As Ordered ONE; +K-TA10TA PO; +LEXA1TAB2 PO; +LOSA50TA28 PO; +OMEP40CA4 PO; +ROSU5TAB5 PO; +TORS20TA2 PO
== END ==
LOC: M LABSMTC 11:12
PROVIDERS: ATTEND Anesthesiology
DX: Z01.812 Encounter for preprocedural laboratory examination (principal); Z11.52 Encounter for screening for COVID-19

== ENCOUNTER → 2022-02-20 | Outpatient (CLI) | payer MEDICARE, OTHER | LOC: M LABSMTC 10:55 | PROVIDERS: ATTEND Anesthesiology | DX: Z01.812 Encounter for preprocedural laboratory examination (principal); Z20.822 Contact with and (suspected) exposure to COVID-19 ==

== ENCOUNTER 2022-02-23 13:20 | Day surgery (SDC) | payer MEDICARE, OTHER ==
[~2022-02-23] VITALS: Ht 170.2 cm; Wt 88.4 kg
[~2022-02-23 13:20] MED LIST changes: +FECAL MICROBIOTA TRANSPLANT PREPARATION 35ML BAG XX ONE; +NS 1,000 ML IV ONE
[2022-02-23] MEDS ORDERED: LIDOCAINE 2% 100MG/5ML SDV (FOR ANES.) As Ordered ONE (14:16)
[2022-02-23] MEDS ORDERED: propofoL 200 MG/20 ML VIAL As Ordered ONE (14:16)
[2022-02-23] MEDS ORDERED: CVS1500T PO (14:43)
[2022-02-23] MEDS ORDERED: VITMTA PO (14:43)
[2022-02-23] MEDS ORDERED: XANA0.5T PO (14:43)
[2022-02-23] MEDS ORDERED: [UNRECOGNIZED DRUG - CODE] PO (14:43)
[2022-02-23] MEDS ORDERED: KP F1200 PO (14:43)
[2022-02-23] MEDS ORDERED: QUINOL PO (14:43)
[2022-02-23] MEDS ORDERED: OSTE1TAB2 PO (14:43)
[2022-02-23] MEDS ORDERED: TURM1CAP5 PO (14:43)
[2022-02-23] MEDS ORDERED: ZINC220CA PO (14:43)
[2022-02-23] MEDS ORDERED: OMEGCAP9 PO (14:43)
[2022-02-23 14:44] VITALS: BP 111/5
[2022-02-23] MEDS ORDERED: ELIQ5TAB PO ×2 (20:15→20:26)
[2022-02-23] MEDS ORDERED: LOPR1TAB6 PO ×2 (20:15→20:26)
[2022-02-23] MEDS ORDERED: LOSA25TA13 PO ×2 (20:15→20:26)
== END 2022-02-23 15:26 | disposition other institution (70) ==
LOC: M OPP 13:20
PROVIDERS: ATTEND Internal Medicine Gastroenterology
DX: A04.71 Enterocolitis due to Clostridium difficile, recurrent (principal); K62.5 Hemorrhage of anus and rectum; Z53.8 Procedure and treatment not carried out for other reasons

== ENCOUNTER 2022-02-23 15:45 | Emergency (ER) | payer MEDICARE, OTHER ==
[~2022-02-23] VITALS: Ht 170.2 cm; Wt 88.2 kg
[~2022-02-23 15:45] MED LIST changes: +CVS1500T PO; -FECAL MICROBIOTA TRANSPLANT PREPARATION 35ML BAG XX ONE; +KP F1200 PO; -NS 1,000 ML IV ONE; +OMEGCAP9 PO; +OSTE1TAB2 PO; +QUINOL PO; +TURM1CAP5 PO; +VITMTA PO; +XANA0.5T PO; +ZINC220CA PO; +[UNRECOGNIZED DRUG - CODE] PO
[2022-02-23] MEDS ORDERED: NS 500 ML IV ONE (15:50)
[2022-02-23] MEDS ORDERED: NS 1,000 ML IV ONE (16:20)
[2022-02-23 16:24] LABS: BASO % 0.2 % (0.0-1.0); HEMATOCRIT 42.5 % (42.0-52.0); LYMPH # 1.9 10^3/uL (1.5-5.0); LYMPH % 22.7 % (24.0-44.0); MEAN CORPUSCULAR HEMOGLOBIN 30.3 pg (27.0-33.0); MEAN CORPUSCULAR HGB CONC 32.9 g/dl (32.0-36.5); MONO # 0.8 10^3/uL (0.0-0.8); NEUTROPHILS # 5.8 10^3/uL (1.5-8.5); NEUTROPHILS % 67.7 % (36.0-66.0); PLATELET COUNT, AUTOMATED 277 10^3/uL (150-450); RED BLOOD COUNT 4.62 10^6/uL (4.30-6.10); WHITE BLOOD COUNT 8.5 10^3/uL (4.0-10.0)
[2022-02-23] MEDS: METOPROLOL 5 MG/5 ML VIAL IV PRN ×3 (16:25→17:15)
[2022-02-23 16:50] LABS: ALBUMIN 3.1 GM/DL (3.2-5.2); ALT/SGPT 58 U/L (12-78); BILIRUBIN,DIRECT 0.3 MG/DL (0.0-0.2); BILIRUBIN,TOTAL 1.2 MG/DL (0.2-1.0); BLOOD UREA NITROGEN 12 MG/DL (7-18); CALCIUM LEVEL 8.6 MG/DL (8.8-10.2); CARBON DIOXIDE LEVEL 27 MEQ/L (21-32); CHLORIDE LEVEL 107 MEQ/L (98-107); CREATININE FOR GFR 0.82 MG/DL (0.70-1.30); GLOMERULAR FILTRATION RATE > 60.0 (>42); GLUCOSE, FASTING 104 MG/DL (70-100); SODIUM LEVEL 143 MEQ/L (136-145); THYROID STIMULATING HORMONE 0.406 uIU/ML (0.358-3.740); THYROXINE (T4) 9.7 UG/DL (4.5-12.0); TOTAL PROTEIN 5.9 GM/DL (6.4-8.2)
[2022-02-23 17:15] VITALS: BP 108/78
[2022-02-23] MEDS ORDERED: METOPROLOL TART 25 MG TABLET PO ONE (17:35)
[2022-02-23 17:41] LABS: FREE T4 1.35 NG/DL (0.76-1.46); LIPASE 85 U/L (73-393); MAGNESIUM LEVEL 2.2 MG/DL (1.8-2.4); NT-PRO BNP 2423 PG/ML (<450)
[2022-02-23] MEDS ORDERED: METOPROLOL TART 50 MG TAB PO ONE (18:05)
[2022-02-23] MEDS ORDERED: APIXABAN 5 MG TAB (ELIQUIS) PO ONE (18:10)
[2022-02-23 19:15] VITALS: BP 113/88
[2022-02-23] MEDS ORDERED: ELIQ5TAB PO ×2 (20:15→20:26)
[2022-02-23] MEDS ORDERED: LOPR1TAB6 PO ×2 (20:15→20:26)
[2022-02-23] MEDS ORDERED: LOSA25TA13 PO ×2 (20:15→20:26)
== END 2022-02-23 20:32 | disposition home or self-care (01) ==
LOC: M ED 15:45
DX: I48.0 Paroxysmal atrial fibrillation (principal); I49.9 Cardiac arrhythmia, unspecified; E78.5 Hyperlipidemia, unspecified; K21.9 Gastro-esophageal reflux disease without esophagitis; Z86.79 Personal history of other diseases of the circulatory system; Z79.01 Long term (current) use of anticoagulants; Z79.899 Other long term (current) drug therapy

== ENCOUNTER → 2022-03-02 | Outpatient (REF) | payer MEDICARE, OTHER ==
[~2022-03-02] MED LIST changes: +ELIQ5TAB PO; +LOPR1TAB6 PO; +LOSA25TA13 PO
== END ==
LOC: M LAB REF 17:10
PROVIDERS: ATTEND Internal Medicine Gastroenterology
DX: R19.7 Diarrhea, unspecified (principal)

== ENCOUNTER 2022-03-16 08:06 | Inpatient (IN) | payer MEDICARE, OTHER ==
[2022-03-16] VITALS (20 sets, daily range): BP systolic 111–200; BP diastolic 71–122; O2SAT 92
[~2022-03-16] VITALS: Ht 170.2 cm; Wt 87.3 kg
[2022-03-16] MEDS ORDERED: METOPROLOL 5 MG/5 ML VIAL As Ordered ONE (08:22)
[2022-03-16] MEDS ORDERED: METOPROLOL TART 50 MG TAB PO ONE (08:25)
[2022-03-16] MEDS: METOPROLOL 5 MG/5 ML VIAL IV SCH ×3 (08:31→09:38)
[2022-03-16] MEDS ORDERED: FUROSEMIDE 20MG/2ML VIAL (J1940) IV ONE (08:40)
[2022-03-16 08:44] LABS: HEMATOCRIT 46.8 % (42.0-52.0); HEMOGLOBIN 14.4 g/dl (13.5-17.5); MEAN CORPUSCULAR HEMOGLOBIN 30.3 pg (27.0-33.0); MEAN CORPUSCULAR HGB CONC 30.8 g/dl (32.0-36.5); MEAN CORPUSCULAR VOLUME 98.5 fl (80.0-96.0); PLATELET COUNT, AUTOMATED 339 10^3/uL (150-450); RED BLOOD COUNT 4.75 10^6/uL (4.30-6.10); WHITE BLOOD COUNT 16.3 10^3/uL (4.0-10.0)
[2022-03-16 08:55] LABS: ABG BASE EXCESS -11.1 (-2.0-2.0); ABG HCO3 16.9 MEQ/L (22.0-26.0); ABG O2 SATURATION 90.8 % (95.0-99.0); ABG PARTIAL PRESSURE CO2 45.6 mmHg (35.0-45.0); ABG PARTIAL PRESSURE O2 73.3 mmHg (75.0-100.0); ABG STANDARD HCO3 15.8 MEQ/L (22.0-26.0); ABG TOTAL CO2 18.3 MEQ/L (23.0-31.0)
[2022-03-16 08:59] LABS: ABG pH (ARTERIAL) 7.188 UNITS (7.350-7.450)
[2022-03-16] MEDS ORDERED: NITROGLYCERIN 0.4 MG SUBL TABLET SL STA (09:06)
[2022-03-16] MEDS ORDERED: NITROGLYCERIN 2% OINT 1 GM *U/D* PKT TOP ONE (09:10)
[2022-03-16 09:49] LABS: ALBUMIN 2.8 GM/DL (3.2-5.2); BILIRUBIN,DIRECT 0.3 MG/DL (0.0-0.2); BILIRUBIN,TOTAL 0.9 MG/DL (0.2-1.0); CALCIUM LEVEL 8.3 MG/DL (8.8-10.2); CREATININE FOR GFR 1.42 MG/DL (0.70-1.30); GLOMERULAR FILTRATION RATE 51.6 (>42); POTASSIUM SERUM 4.2 MEQ/L (3.5-5.1); THYROID STIMULATING HORMONE 2.04 uIU/ML (0.358-3.740); THYROXINE (T4) 7.4 UG/DL (4.5-12.0); TOTAL PROTEIN 5.5 GM/DL (6.4-8.2)
[2022-03-16 09:51] LABS: ATYPICAL LYMPH 13 % (0-5); LYMPHOCYTES 33 % (16-44); MONOCYTES 11 % (0-5); NEUTROPHILS 43 % (28-66)
[2022-03-16 09:52] LABS: ANISOCYTOSIS 1+; PLATELET ESTIMATE NORMAL (NORMAL)
[2022-03-16] MEDS ORDERED: DIGOXIN INJ 0.5 MG/2 ML AMP (J1160) IV ONE ×3 (11:30→21:30)
[2022-03-16] MEDS: FUROSEMIDE 20MG/2ML VIAL (J1940) IV SCH ×2 (15:33→20:02)
[2022-03-16] MEDS ORDERED: ALPR1TAB3 PO (15:58)
[2022-03-16] MEDS ORDERED: UBIQ100C2 PO (15:58)
[2022-03-16] MEDS ORDERED: LOSA25TA13 PO (15:58)
[2022-03-16] MEDS ORDERED: ELIQ5TAB PO (15:58)
[2022-03-16] MEDS ORDERED: TIZA10TA PO (16:00)
[2022-03-16] MEDS ORDERED: METO50TA7 PO (16:00)
[2022-03-16] MEDS ORDERED: HOME MED LIST COMPLETE! XX SCH (16:05)
[2022-03-16] MEDS ORDERED: tiZANidine 4 MG TAB PO PRN (16:15)
[2022-03-16] MEDS: ZINC SULFATE 220 MG CAP PO SCH (17:23)
[2022-03-16] MEDS: LOSARTAN 25 MG TAB PO SCH (17:23)
[2022-03-16] MEDS: ROSUVASTATIN 10 MG TAB (CRESTOR) PO SCH (17:24)
[2022-03-16] MEDS: OMEPRAZOLE 20MG CAP PO SCH (17:24)
[2022-03-16] MEDS: LORazepam 2 MG TAB PO PRN ×2 (19:07→23:10)
[2022-03-16 19:30] LABS: HEMATOCRIT 43.3 % (42.0-52.0); HEMOGLOBIN 14.2 g/dl (13.5-17.5); MEAN CORPUSCULAR HEMOGLOBIN 30.2 pg (27.0-33.0); MEAN CORPUSCULAR HGB CONC 32.8 g/dl (32.0-36.5); MEAN CORPUSCULAR VOLUME 92.1 fl (80.0-96.0); PLATELET COUNT, AUTOMATED 326 10^3/uL (150-450); WHITE BLOOD COUNT 12.9 10^3/uL (4.0-10.0)
[2022-03-16 20:00] LABS: ALT/SGPT 225 U/L (12-78); BILIRUBIN,TOTAL 1.1 MG/DL (0.2-1.0); BLOOD UREA NITROGEN 13 MG/DL (7-18); CARBON DIOXIDE LEVEL 23 MEQ/L (21-32); CHLORIDE LEVEL 108 MEQ/L (98-107); GLOMERULAR FILTRATION RATE > 60.0 (>42); GLUCOSE, FASTING 109 MG/DL (70-100); POTASSIUM SERUM 3.8 MEQ/L (3.5-5.1); SODIUM LEVEL 140 MEQ/L (136-145); TOTAL PROTEIN 6.5 GM/DL (6.4-8.2)
[2022-03-16] MEDS: MULTIVITAMINS/MINERALS THERAP 1 TAB PO SCH (20:02)
[2022-03-16] MEDS: ESCITALOPRAM OXALATE 10 MG TAB (LEXAPRO) PO SCH (20:02)
[2022-03-16] MEDS: METOPROLOL TART 50 MG TAB PO SCH (20:03)
[2022-03-16] MEDS: APIXABAN 5 MG TAB (ELIQUIS) PO SCH (20:03)
[2022-03-16] MEDS: ALPRAZolam 0.5 MG TAB PO SCH (20:05)
[2022-03-16 20:16] LABS: CK-MB VALUE MASS 3.5 NG/ML (<3.6); MB/CK RELATIVE INDEX 2.41 (< OR =4)
[2022-03-17] VITALS (21 sets, daily range): BP systolic 72–172; BP diastolic 45–103
[2022-03-17] MEDS: LORazepam 2 MG TAB PO PRN ×2 (03:00→06:18)
[2022-03-17] MEDS: FUROSEMIDE 20MG/2ML VIAL (J1940) IV SCH ×4 (03:00→23:45)
[2022-03-17 03:56] LABS: HEMATOCRIT 40.5 % (42.0-52.0); HEMOGLOBIN 12.7 g/dl (13.5-17.5); MEAN CORPUSCULAR HEMOGLOBIN 30.5 pg (27.0-33.0); MEAN CORPUSCULAR HGB CONC 31.4 g/dl (32.0-36.5); MEAN CORPUSCULAR VOLUME 97.1 fl (80.0-96.0); PLATELET COUNT, AUTOMATED 267 10^3/uL (150-450); RED BLOOD COUNT 4.17 10^6/uL (4.30-6.10)
[2022-03-17 04:17] LABS: ALBUMIN 2.5 GM/DL (3.2-5.2); ALT/SGPT 174 U/L (12-78); BILIRUBIN,TOTAL 0.7 MG/DL (0.2-1.0); BLOOD UREA NITROGEN 12 MG/DL (7-18); CALCIUM LEVEL 8.3 MG/DL (8.8-10.2); CARBON DIOXIDE LEVEL 27 MEQ/L (21-32); CHLORIDE LEVEL 112 MEQ/L (98-107); CREATININE FOR GFR 1.05 MG/DL (0.70-1.30); GLOMERULAR FILTRATION RATE > 60.0 (>42); GLUCOSE, FASTING 82 MG/DL (70-100); NT-PRO BNP 27614 PG/ML (<450); POTASSIUM SERUM 4.4 MEQ/L (3.5-5.1); SODIUM LEVEL 142 MEQ/L (136-145); TOTAL PROTEIN 5.4 GM/DL (6.4-8.2)
[2022-03-17] MEDS: APIXABAN 5 MG TAB (ELIQUIS) PO SCH ×2 (08:00→20:14)
[2022-03-17] MEDS: OMEPRAZOLE 20MG CAP PO SCH (08:00)
[2022-03-17] MEDS: LOSARTAN 25 MG TAB PO SCH (08:00)
[2022-03-17] MEDS: METOPROLOL TART 50 MG TAB PO SCH ×3 (08:00→20:15)
[2022-03-17] MEDS: FOLIC ACID 1MG TAB PO SCH (08:00)
[2022-03-17] MEDS: THIAMINE 100 MG TAB PO SCH (08:01)
[2022-03-17] MEDS: ROSUVASTATIN 10 MG TAB (CRESTOR) PO SCH (08:01)
[2022-03-17] MEDS: ZINC SULFATE 220 MG CAP PO SCH (08:01)
[2022-03-17] MEDS ORDERED: FUROSEMIDE 20MG/2ML VIAL (J1940) IV ONE (08:05)
[2022-03-17] MEDS ORDERED: SODIUM CHLORIDE 0.9% 1000ML IV ONE (09:45)
[2022-03-17] MEDS: ESCITALOPRAM OXALATE 10 MG TAB (LEXAPRO) PO SCH (20:15)
[2022-03-17] MEDS: ALPRAZolam 0.5 MG TAB PO SCH (20:15)
[2022-03-17] MEDS: MULTIVITAMINS/MINERALS THERAP 1 TAB PO SCH (20:15)
[2022-03-17] MEDS: ENTRESTO 24-26MG TABLET (SACUBITRIL/VALSARTAN) PO SCH (20:15)
[2022-03-18] VITALS (9 sets, daily range): BP systolic 112–161; BP diastolic 60–98
[2022-03-18 05:19] LABS: HEMATOCRIT 41.1 % (42.0-52.0); HEMOGLOBIN 13.5 g/dl (13.5-17.5); MEAN CORPUSCULAR HEMOGLOBIN 30.5 pg (27.0-33.0); MEAN CORPUSCULAR HGB CONC 32.8 g/dl (32.0-36.5); PLATELET COUNT, AUTOMATED 262 10^3/uL (150-450); RED BLOOD COUNT 4.42 10^6/uL (4.30-6.10); WHITE BLOOD COUNT 9.5 10^3/uL (4.0-10.0)
[2022-03-18 06:01] LABS: BLOOD UREA NITROGEN 13 MG/DL (7-18); CARBON DIOXIDE LEVEL 29 MEQ/L (21-32); CHLORIDE LEVEL 106 MEQ/L (98-107); CREATININE FOR GFR 0.89 MG/DL (0.70-1.30); GLOMERULAR FILTRATION RATE > 60.0 (>42); GLUCOSE, FASTING 111 MG/DL (70-100); MAGNESIUM LEVEL 1.6 MG/DL (1.8-2.4); NT-PRO BNP 11357 PG/ML (<450); POTASSIUM SERUM 3.2 MEQ/L (3.5-5.1); SODIUM LEVEL 143 MEQ/L (136-145)
[2022-03-18] MEDS: FUROSEMIDE 20MG/2ML VIAL (J1940) IV SCH ×4 (06:08→23:28)
[2022-03-18] MEDS ORDERED: POTASSIUM CHLORIDE 10MEQ SR TABLET PO ONE (07:00)
[2022-03-18] MEDS ORDERED: MAG SULF 1GM/100ML (MAG RUN) 1 GM in IV 1 EA IV ONE (08:00)
[2022-03-18] MEDS: APIXABAN 5 MG TAB (ELIQUIS) PO SCH ×2 (08:53→21:11)
[2022-03-18] MEDS: FOLIC ACID 1MG TAB PO SCH (08:53)
[2022-03-18] MEDS: METOPROLOL TART 50 MG TAB PO SCH ×3 (08:53→21:11)
[2022-03-18] MEDS: ENTRESTO 24-26MG TABLET (SACUBITRIL/VALSARTAN) PO SCH ×2 (08:53→21:10)
[2022-03-18] MEDS: OMEPRAZOLE 20MG CAP PO SCH (08:53)
[2022-03-18] MEDS: ROSUVASTATIN 10 MG TAB (CRESTOR) PO SCH (08:53)
[2022-03-18] MEDS: THIAMINE 100 MG TAB PO SCH (08:54)
[2022-03-18] MEDS: ZINC SULFATE 220 MG CAP PO SCH (08:54)
[2022-03-18] MEDS ORDERED: POTASSIUM CHLORIDE 10MEQ SR TABLET PO SCH (09:00)
[2022-03-18] MEDS ORDERED: DIGOXIN INJ 0.5 MG/2 ML AMP (J1160) IV ONE (10:30)
[2022-03-18] MEDS: ALPRAZolam 0.5 MG TAB PO PRN (17:44)
[2022-03-18 21:07] LABS: APPEARANCE, URINE MANUAL CLOUDY (CLEAR); BILIRUBIN, URINE MANUAL 1+ (NEGATIVE); BLOOD URINE MANUAL POSITIVE (NEGATIVE); COLOR, URINE MANUAL DK YELLOW (YELLOW); GLUCOSE, URINE (UA) MANUAL NEGATIVE (NEGATIVE); KETONE, URINE MANUAL NEGATIVE (NEGATIVE); LEUKOCYTE ESTERASE, URINE MAN POSITIVE (NEGATIVE); NITRITE, URINE MANUAL NEGATIVE (NEGATIVE); PROTEIN, URINE MANUAL 2+ mg/dL (NEGATIVE); UROBILINOGEN, URINE MANUAL 4 MG mg/dl (NORMAL)
[2022-03-18 21:08] LABS: SPECIFIC GRAVITY,URINE MANUAL 1.019 (1.002-1.035)
[2022-03-18] MEDS: POTASSIUM CHLORIDE 10MEQ SR TABLET PO SCH (21:10)
[2022-03-18] MEDS: ESCITALOPRAM OXALATE 10 MG TAB (LEXAPRO) PO SCH (21:11)
[2022-03-18] MEDS: MULTIVITAMINS/MINERALS THERAP 1 TAB PO SCH (21:12)
[2022-03-18 21:15] LABS: RBC, URINE TNTC /hpf (0-3); WBC, URINE 20-30 /hpf (0-3)
[2022-03-18 21:16] LABS: SQUAMOUS EPITHELIAL CELL URINE SMALL AMOUNT /hpf (SMALL AMT)
[2022-03-18 21:17] LABS: BACTERIA, URINE NONE SEEN; HYALINE CAST, URINE NONE SEEN /lpf (0-1); MUCUS, URINE SMALL AMOUNT (NEGATIVE)
[2022-03-18 21:18] LABS: AMORPHOUS SEDIMENT, URINE SMALL AMOUNT (NEGATIVE)
[2022-03-19] VITALS (7 sets, daily range): BP systolic 110–161; BP diastolic 65–87
[2022-03-19] MEDS: METOPROLOL TART 50 MG TAB PO SCH ×4 (04:45→21:21)
[2022-03-19 04:53] LABS: HEMATOCRIT 43.6 % (42.0-52.0); MEAN CORPUSCULAR HEMOGLOBIN 30.1 pg (27.0-33.0); MEAN CORPUSCULAR HGB CONC 32.1 g/dl (32.0-36.5); MEAN CORPUSCULAR VOLUME 93.8 fl (80.0-96.0); PLATELET COUNT, AUTOMATED 284 10^3/uL (150-450); RED BLOOD COUNT 4.65 10^6/uL (4.30-6.10); WHITE BLOOD COUNT 12.6 10^3/uL (4.0-10.0)
[2022-03-19 05:18] LABS: BLOOD UREA NITROGEN 10 MG/DL (7-18); CALCIUM LEVEL 8.3 MG/DL (8.8-10.2); CARBON DIOXIDE LEVEL 31 MEQ/L (21-32); CHLORIDE LEVEL 107 MEQ/L (98-107); CREATININE FOR GFR 0.84 MG/DL (0.70-1.30); GLOMERULAR FILTRATION RATE > 60.0 (>42); GLUCOSE, FASTING 106 MG/DL (70-100); MAGNESIUM LEVEL 1.9 MG/DL (1.8-2.4); POTASSIUM SERUM 3.5 MEQ/L (3.5-5.1); SODIUM LEVEL 142 MEQ/L (136-145)
[2022-03-19] MEDS: FUROSEMIDE 20MG/2ML VIAL (J1940) IV SCH ×3 (06:03→17:06)
[2022-03-19] MEDS ORDERED: EMLA CREAM 5GM TUBE (LIDOCAINE/PRILOCAINE) TOP PRN (08:10)
[2022-03-19] MEDS: ROSUVASTATIN 10 MG TAB (CRESTOR) PO SCH (08:55)
[2022-03-19] MEDS: POTASSIUM CHLORIDE 10MEQ SR TABLET PO SCH ×2 (08:55→21:14)
[2022-03-19] MEDS: ZINC SULFATE 220 MG CAP PO SCH (08:57)
[2022-03-19] MEDS: ENTRESTO 24-26MG TABLET (SACUBITRIL/VALSARTAN) PO SCH ×2 (08:57→21:14)
[2022-03-19] MEDS: FOLIC ACID 1MG TAB PO SCH (08:58)
[2022-03-19] MEDS: OMEPRAZOLE 20MG CAP PO SCH (08:58)
[2022-03-19] MEDS: APIXABAN 5 MG TAB (ELIQUIS) PO SCH ×2 (08:58→21:14)
[2022-03-19] MEDS: THIAMINE 100 MG TAB PO SCH (08:58)
[2022-03-19] MEDS ORDERED: DIGOXIN 0.25 MG TAB PO SCH (09:00)
[2022-03-19] MEDS: CIPROFLOXACIN 250MG TAB PO SCH ×2 (11:16→17:12)
[2022-03-19] MEDS: ALPRAZolam 0.5 MG TAB PO PRN (17:12)
[2022-03-19] MEDS: ESCITALOPRAM OXALATE 10 MG TAB (LEXAPRO) PO SCH (21:14)
[2022-03-19] MEDS: MULTIVITAMINS/MINERALS THERAP 1 TAB PO SCH (21:14)
[2022-03-19] MEDS ORDERED: ACETAMINOPHEN TAB 650MG DOSE (2X325MG) PO PRN (22:20)
[2022-03-20] VITALS: BP 117/59
[2022-03-20 04:00] VITALS: BP 137/68
[2022-03-20] MEDS: METOPROLOL TART 50 MG TAB PO SCH ×4 (04:31→21:27)
[2022-03-20] MEDS: FUROSEMIDE 20MG/2ML VIAL (J1940) IV SCH ×4 (05:19→17:39)
[2022-03-20] MEDS: CIPROFLOXACIN 250MG TAB PO SCH ×2 (05:19→17:38)
[2022-03-20 05:28] LABS: HEMATOCRIT 44.8 % (42.0-52.0); HEMOGLOBIN 14.2 g/dl (13.5-17.5); MEAN CORPUSCULAR HEMOGLOBIN 29.6 pg (27.0-33.0); MEAN CORPUSCULAR HGB CONC 31.7 g/dl (32.0-36.5); MEAN CORPUSCULAR VOLUME 93.5 fl (80.0-96.0); PLATELET COUNT, AUTOMATED 285 10^3/uL (150-450); RED BLOOD COUNT 4.79 10^6/uL (4.30-6.10); WHITE BLOOD COUNT 12.2 10^3/uL (4.0-10.0)
[2022-03-20 06:03] LABS: BLOOD UREA NITROGEN 12 MG/DL (7-18); CALCIUM LEVEL 8.5 MG/DL (8.8-10.2); CARBON DIOXIDE LEVEL 25 MEQ/L (21-32); CHLORIDE LEVEL 106 MEQ/L (98-107); CREATININE FOR GFR 0.77 MG/DL (0.70-1.30); GLOMERULAR FILTRATION RATE > 60.0 (>42); GLUCOSE, FASTING 114 MG/DL (70-100); POTASSIUM SERUM 3.6 MEQ/L (3.5-5.1); SODIUM LEVEL 138 MEQ/L (136-145)
[2022-03-20 08:47] VITALS: BP 145/72
[2022-03-20] MEDS: THIAMINE 100 MG TAB PO SCH (09:19)
[2022-03-20] MEDS: FOLIC ACID 1MG TAB PO SCH (09:20)
[2022-03-20] MEDS: OMEPRAZOLE 20MG CAP PO SCH (09:20)
[2022-03-20] MEDS: ZINC SULFATE 220 MG CAP PO SCH (09:20)
[2022-03-20] MEDS: APIXABAN 5 MG TAB (ELIQUIS) PO SCH ×2 (09:21→21:13)
[2022-03-20] MEDS: ENTRESTO 24-26MG TABLET (SACUBITRIL/VALSARTAN) PO SCH ×2 (09:21→21:13)
[2022-03-20] MEDS: ROSUVASTATIN 10 MG TAB (CRESTOR) PO SCH (09:22)
[2022-03-20] MEDS: POTASSIUM CHLORIDE 10MEQ SR TABLET PO SCH ×2 (09:23→21:13)
[2022-03-20] MEDS ORDERED: PILL CUTTER 1 EACH XX ONE (09:25)
[2022-03-20] MEDS: ALPRAZolam 0.5 MG TAB PO PRN ×2 (09:27→16:58)
[2022-03-20] MEDS ORDERED: FLUBLOK(EGG FREE)(QUAD)INFLUENZA VACC 0.5ML SYRINGE 18YRS & OLDER IM.IMMUN ONE (12:00)
[2022-03-20] MEDS ORDERED: PREVNAR-20 VACCINE 0.5ML SYRINGE IM.IMMUN ONE (12:00)
[2022-03-20 16:00] VITALS: BP 120/61
[2022-03-20] MEDS ORDERED: DIGOXIN INJ 0.5 MG/2 ML AMP (J1160) IV ONE (17:30)
[2022-03-20 20:00] VITALS: BP 118/66
[2022-03-20] MEDS: MULTIVITAMINS/MINERALS THERAP 1 TAB PO SCH (21:14)
[2022-03-20] MEDS: ESCITALOPRAM OXALATE 10 MG TAB (LEXAPRO) PO SCH (21:14)
[2022-03-21] VITALS (7 sets, daily range): BP systolic 92–130; BP diastolic 50–82
[2022-03-21] MEDS: FUROSEMIDE 20MG/2ML VIAL (J1940) IV SCH ×4 (00:37→18:00)
[2022-03-21] MEDS: METOPROLOL TART 50 MG TAB PO SCH ×4 (03:15→22:39)
[2022-03-21] MEDS: CIPROFLOXACIN 250MG TAB PO SCH (05:19)
[2022-03-21 05:58] LABS: HEMATOCRIT 47.7 % (42.0-52.0); HEMOGLOBIN 15.5 g/dl (13.5-17.5); MEAN CORPUSCULAR HEMOGLOBIN 29.8 pg (27.0-33.0); MEAN CORPUSCULAR HGB CONC 32.5 g/dl (32.0-36.5); MEAN CORPUSCULAR VOLUME 91.7 fl (80.0-96.0); PLATELET COUNT, AUTOMATED 332 10^3/uL (150-450); WHITE BLOOD COUNT 10.3 10^3/uL (4.0-10.0)
[2022-03-21 06:39] LABS: BLOOD UREA NITROGEN 19 MG/DL (7-18); CALCIUM LEVEL 8.9 MG/DL (8.8-10.2); CARBON DIOXIDE LEVEL 26 MEQ/L (21-32); CHLORIDE LEVEL 105 MEQ/L (98-107); CREATININE FOR GFR 0.91 MG/DL (0.70-1.30); GLOMERULAR FILTRATION RATE > 60.0 (>42); GLUCOSE, FASTING 121 MG/DL (70-100); MAGNESIUM LEVEL 2.1 MG/DL (1.8-2.4); POTASSIUM SERUM 4.5 MEQ/L (3.5-5.1); SODIUM LEVEL 137 MEQ/L (136-145)
[2022-03-21] MEDS: ROSUVASTATIN 10 MG TAB (CRESTOR) PO SCH (09:56)
[2022-03-21] MEDS: THIAMINE 100 MG TAB PO SCH (09:57)
[2022-03-21] MEDS: ENTRESTO 24-26MG TABLET (SACUBITRIL/VALSARTAN) PO SCH ×2 (09:57→20:16)
[2022-03-21] MEDS: FOLIC ACID 1MG TAB PO SCH (09:57)
[2022-03-21] MEDS: APIXABAN 5 MG TAB (ELIQUIS) PO SCH ×2 (09:57→20:16)
[2022-03-21] MEDS: OMEPRAZOLE 20MG CAP PO SCH (09:58)
[2022-03-21] MEDS: DIGOXIN 0.125 MG TAB PO SCH (09:58)
[2022-03-21] MEDS: POTASSIUM CHLORIDE 10MEQ SR TABLET PO SCH ×2 (09:59→20:16)
[2022-03-21] MEDS: ZINC SULFATE 220 MG CAP PO SCH (10:00)
[2022-03-21] MEDS: LACTOBACILLUS ACIDOPHILUS CAP (BACID) PO SCH ×2 (13:37→19:36)
[2022-03-21] MEDS: CEPHALEXIN 500 MG CAP PO SCH ×2 (13:37→22:38)
[2022-03-21] MEDS: MULTIVITAMINS/MINERALS THERAP 1 TAB PO SCH (20:16)
[2022-03-21] MEDS: ESCITALOPRAM OXALATE 10 MG TAB (LEXAPRO) PO SCH (20:17)
[2022-03-22] VITALS (7 sets, daily range): BP systolic 106–125; BP diastolic 64–82
[2022-03-22] MEDS: FUROSEMIDE 20MG/2ML VIAL (J1940) IV SCH ×3 (00:31→13:39)
[2022-03-22 04:29] LABS: HEMATOCRIT 48.7 % (42.0-52.0); HEMOGLOBIN 15.7 g/dl (13.5-17.5); MEAN CORPUSCULAR HGB CONC 32.2 g/dl (32.0-36.5); MEAN CORPUSCULAR VOLUME 93.1 fl (80.0-96.0); PLATELET COUNT, AUTOMATED 377 10^3/uL (150-450); RED BLOOD COUNT 5.23 10^6/uL (4.30-6.10); WHITE BLOOD COUNT 11.4 10^3/uL (4.0-10.0)
[2022-03-22] MEDS: METOPROLOL TART 50 MG TAB PO SCH ×4 (04:58→21:44)
[2022-03-22 05:04] LABS: BLOOD UREA NITROGEN 22 MG/DL (7-18); CALCIUM LEVEL 8.8 MG/DL (8.8-10.2); CARBON DIOXIDE LEVEL 27 MEQ/L (21-32); CHLORIDE LEVEL 106 MEQ/L (98-107); CREATININE FOR GFR 0.92 MG/DL (0.70-1.30); GLOMERULAR FILTRATION RATE > 60.0 (>42); GLUCOSE, FASTING 121 MG/DL (70-100); POTASSIUM SERUM 4.6 MEQ/L (3.5-5.1); SODIUM LEVEL 140 MEQ/L (136-145)
[2022-03-22] MEDS: CEPHALEXIN 500 MG CAP PO SCH ×3 (06:16→21:43)
[2022-03-22] MEDS: LACTOBACILLUS ACIDOPHILUS CAP (BACID) PO SCH ×3 (08:29→16:53)
[2022-03-22] MEDS: OMEPRAZOLE 20MG CAP PO SCH (08:30)
[2022-03-22] MEDS: ENTRESTO 24-26MG TABLET (SACUBITRIL/VALSARTAN) PO SCH ×2 (08:30→21:43)
[2022-03-22] MEDS: APIXABAN 5 MG TAB (ELIQUIS) PO SCH ×2 (08:30→21:43)
[2022-03-22] MEDS: FOLIC ACID 1MG TAB PO SCH (08:30)
[2022-03-22] MEDS: POTASSIUM CHLORIDE 10MEQ SR TABLET PO SCH ×2 (08:30→21:43)
[2022-03-22] MEDS: ROSUVASTATIN 10 MG TAB (CRESTOR) PO SCH (08:33)
[2022-03-22] MEDS: ZINC SULFATE 220 MG CAP PO SCH (08:33)
[2022-03-22] MEDS: THIAMINE 100 MG TAB PO SCH (08:33)
[2022-03-22] MEDS: DIGOXIN 0.125 MG TAB PO SCH (08:34)
[2022-03-22] MEDS: MULTIVITAMINS/MINERALS THERAP 1 TAB PO SCH (21:42)
[2022-03-22] MEDS: ESCITALOPRAM OXALATE 10 MG TAB (LEXAPRO) PO SCH (21:43)
[2022-03-22] MEDS: ALPRAZolam 0.5 MG TAB PO PRN (22:05)
[2022-03-23] MEDS ORDERED: FUROSEMIDE 20MG/2ML VIAL (J1940) IV SCH
[2022-03-23 00:50] VITALS: BP 113/72
[2022-03-23 04:26] VITALS: BP 108/69
[2022-03-23] MEDS: METOPROLOL TART 50 MG TAB PO SCH ×2 (04:31→10:17)
[2022-03-23] MEDS: CEPHALEXIN 500 MG CAP PO SCH (05:21)
[2022-03-23 05:59] LABS: HEMATOCRIT 48.5 % (42.0-52.0); HEMOGLOBIN 15.9 g/dl (13.5-17.5); MEAN CORPUSCULAR HEMOGLOBIN 30.2 pg (27.0-33.0); MEAN CORPUSCULAR HGB CONC 32.8 g/dl (32.0-36.5); MEAN CORPUSCULAR VOLUME 92.2 fl (80.0-96.0); PLATELET COUNT, AUTOMATED 392 10^3/uL (150-450); RED BLOOD COUNT 5.26 10^6/uL (4.30-6.10); WHITE BLOOD COUNT 9.9 10^3/uL (4.0-10.0)
[2022-03-23 06:22] LABS: BLOOD UREA NITROGEN 23 MG/DL (7-18); CARBON DIOXIDE LEVEL 26 MEQ/L (21-32); CHLORIDE LEVEL 106 MEQ/L (98-107); CREATININE FOR GFR 0.95 MG/DL (0.70-1.30); GLOMERULAR FILTRATION RATE > 60.0 (>42); GLUCOSE, FASTING 108 MG/DL (70-100); POTASSIUM SERUM 4.6 MEQ/L (3.5-5.1); SODIUM LEVEL 138 MEQ/L (136-145)
[2022-03-23 06:23] LABS: CALCIUM LEVEL 9.3 MG/DL (8.8-10.2); MAGNESIUM LEVEL 2.3 MG/DL (1.8-2.4)
[2022-03-23 08:53] VITALS: BP 127/74
[2022-03-23] MEDS: FOLIC ACID 1MG TAB PO SCH (09:09)
[2022-03-23] MEDS: DIGOXIN 0.125 MG TAB PO SCH (09:09)
[2022-03-23] MEDS: ENTRESTO 24-26MG TABLET (SACUBITRIL/VALSARTAN) PO SCH (09:09)
[2022-03-23] MEDS: OMEPRAZOLE 20MG CAP PO SCH (09:10)
[2022-03-23] MEDS: LACTOBACILLUS ACIDOPHILUS CAP (BACID) PO SCH (09:10)
[2022-03-23] MEDS: POTASSIUM CHLORIDE 10MEQ SR TABLET PO SCH (09:10)
[2022-03-23] MEDS: ROSUVASTATIN 10 MG TAB (CRESTOR) PO SCH (09:11)
[2022-03-23] MEDS: ZINC SULFATE 220 MG CAP PO SCH (09:12)
[2022-03-23] MEDS: THIAMINE 100 MG TAB PO SCH (09:12)
[2022-03-23] MEDS: APIXABAN 5 MG TAB (ELIQUIS) PO SCH (09:12)
[2022-03-23] MEDS ORDERED: CEPH500C PO (09:58)
[2022-03-23 10:17] VITALS: BP 103/67
[2022-03-23] MEDS ORDERED: LOPR1TAB7 PO (10:24)
[2022-03-23] MEDS ORDERED: LASI40TA9 PO (10:24)
[2022-03-23] MEDS ORDERED: DIGO0.123 PO (10:24)
== END 2022-03-23 13:07 | disposition home health service (06) | DRG 291 ==
LOC: M ED 08:06 → EDBD 08:06 → M ED INP 12:30 → M ICU 14:05 → M PCU 03-19 17:20
PROVIDERS: ADMIT Internal Medicine; ATTEND Internal Medicine
DX: I11.0 Hypertensive heart disease with heart failure (principal); I50.23 Acute on chronic systolic (congestive) heart failure; N17.9 Acute kidney failure, unspecified; E87.20 Acidosis, unspecified; A04.72 Enterocolitis due to Clostridium difficile, not specified as recurrent; N39.0 Urinary tract infection, site not specified; I48.91 Unspecified atrial fibrillation; E11.9 Type 2 diabetes mellitus without complications; E78.5 Hyperlipidemia, unspecified; B96.20 Unspecified Escherichia coli [E. coli] as the cause of diseases classified elsewhere; Z79.01 Long term (current) use of anticoagulants; Z79.899 Other long term (current) drug therapy; Z85.51 Personal history of malignant neoplasm of bladder; Z87.891 Personal history of nicotine dependence; F10.10 Alcohol abuse, uncomplicated; F32.A Depression, unspecified; E87.6 Hypokalemia; E83.42 Hypomagnesemia

== ENCOUNTER → 2022-05-04 | Outpatient (REF) | payer MEDICARE ==
[~2022-05-04] MED LIST changes: +ALPR1TAB3 PO; +CEPH500C PO; +DIGO0.123 PO; +LASI40TA9 PO; +LOPR1TAB7 PO; +METO50TA7 PO; +TIZA10TA PO; +UBIQ100C2 PO
[2022-05-04 18:04] LABS: BLOOD UREA NITROGEN 15 MG/DL (9-23); CALCIUM LEVEL 9.1 MG/DL (8.3-10.6); CARBON DIOXIDE LEVEL 30 MMOL/L (20-31); CHLORIDE LEVEL 99 MMOL/L (98-107); CREATININE FOR GFR 0.91 MG/DL (0.70-1.30); GLOMERULAR FILTRATION RATE > 60.0 (>42); GLUCOSE, FASTING 123 MG/DL (74-106); POTASSIUM SERUM 4.4 MMOL/L (3.5-5.1); SODIUM LEVEL 138 MMOL/L (136-145)
== END ==
LOC: M LABDRWCV 16:50
PROVIDERS: ATTEND Physician Assistant
DX: I49.2 Junctional premature depolarization (principal)

== ENCOUNTER → 2022-05-11 | Outpatient (REF) | payer MEDICARE ==
[2022-05-11 16:12] LABS: MAGNESIUM LEVEL 1.8 MG/DL (1.8-2.4)
[2022-05-11 16:14] LABS: BLOOD UREA NITROGEN 14 MG/DL (9-23); CALCIUM LEVEL 8.8 MG/DL (8.3-10.6); CARBON DIOXIDE LEVEL 30 MMOL/L (20-31); CHLORIDE LEVEL 102 MMOL/L (98-107); CREATININE FOR GFR 0.82 MG/DL (0.70-1.30); GLOMERULAR FILTRATION RATE > 60.0 (>42); GLUCOSE, FASTING 108 MG/DL (74-106); POTASSIUM SERUM 4.5 MMOL/L (3.5-5.1); SODIUM LEVEL 141 MMOL/L (136-145)
== END ==
LOC: M SHH 14:15
PROVIDERS: ATTEND Family Medicine
DX: I50.9 Heart failure, unspecified (principal)

== ENCOUNTER → 2022-05-19 | Outpatient (REF) | payer MEDICARE, OTHER ==
[2022-05-19 18:26] LABS: BASO # 0.1 10^3/uL (0.0-0.2); BASO % 0.5 % (0.0-1.0); EOS # 0.1 10^3/uL (0.0-0.5); EOS % 0.7 % (0.0-3.0); HEMATOCRIT 48.2 % (42.0-52.0); HEMOGLOBIN 15.5 g/dl (13.5-17.5); LYMPH % 26.9 % (24.0-44.0); MEAN CORPUSCULAR HGB CONC 32.2 g/dl (32.0-36.5); MEAN CORPUSCULAR VOLUME 90.3 fl (80.0-96.0); MONO % 8.8 % (2.0-8.0); NEUTROPHILS % 62.7 % (36.0-66.0); PLATELET COUNT, AUTOMATED 330 10^3/uL (150-450); RED BLOOD COUNT 5.34 10^6/uL (4.30-6.10); WHITE BLOOD COUNT 11.2 10^3/uL (4.0-10.0)
[2022-05-19 18:58] LABS: MAGNESIUM LEVEL 1.8 MG/DL (1.8-2.4)
[2022-05-19 19:03] LABS: ALBUMIN 3.6 G/DL (3.2-5.2); ALKALINE PHOSPHATASE 107 U/L (46-116); ALT/SGPT 21 U/L (7.0-40); AST/SGOT 17 U/L (<34); BILIRUBIN,TOTAL 0.9 MG/DL (0.3-1.2); BLOOD UREA NITROGEN 17 MG/DL (9-23); CARBON DIOXIDE LEVEL 32 MMOL/L (20-31); CHLORIDE LEVEL 98 MMOL/L (98-107); CREATININE FOR GFR 0.88 MG/DL (0.70-1.30); GLOMERULAR FILTRATION RATE > 60.0 (>42); GLUCOSE, FASTING 109 MG/DL (74-106); POTASSIUM SERUM 4.1 MMOL/L (3.5-5.1); SODIUM LEVEL 138 MMOL/L (136-145); TOTAL PROTEIN 6.9 G/DL (5.7-8.2)
[2022-05-19 19:17] LABS: HEPATITIS B SURFACE ANTIGEN NEGATIVE (NEGATIVE)
[2022-05-19 19:39] LABS: HEPATITIS B CORE ANTIBODY IGM NEGATIVE (NEGATIVE); HEPATITIS C VIRUS ABY INDEX 0.2 INDEX (<0.8)
[2022-05-19 20:49] LABS: THYROID STIMULATING HORMONE 1.292 uIU/ML (0.55-4.78)
== END ==
LOC: M SFHCCAPE 13:49
PROVIDERS: ATTEND Physician Assistant
DX: R14.0 Abdominal distension (gaseous) (principal); R74.8 Abnormal levels of other serum enzymes; Z79.899 Other long term (current) drug therapy

== ENCOUNTER → 2022-06-01 | Outpatient (CLI) | payer MEDICARE, OTHER | LOC: M RAD 08:45 | PROVIDERS: ATTEND Physician Assistant | DX: R14.0 Abdominal distension (gaseous) (principal); R74.8 Abnormal levels of other serum enzymes; R16.1 Splenomegaly, not elsewhere classified; N28.1 Cyst of kidney, acquired ==

== ENCOUNTER → 2022-07-26 | Outpatient (REF) | payer MEDICARE, OTHER ==
[2022-07-26 17:56] LABS: BLOOD UREA NITROGEN 16 MG/DL (9-23); CALCIUM LEVEL 9.2 MG/DL (8.3-10.6); CARBON DIOXIDE LEVEL 33 MMOL/L (20-31); CHLORIDE LEVEL 106 MMOL/L (98-107); CREATININE FOR GFR 0.93 MG/DL (0.70-1.30); DIGOXIN LEVEL 0.4 NG/ML (0.8-2.0); GLOMERULAR FILTRATION RATE > 60.0 (>42); GLUCOSE, FASTING 121 MG/DL (74-106); POTASSIUM SERUM 4.6 MMOL/L (3.5-5.1); SODIUM LEVEL 144 MMOL/L (136-145)
== END ==
LOC: M LABDRWCV 17:08
PROVIDERS: ATTEND Physician Assistant
DX: I42.9 Cardiomyopathy, unspecified (principal)

== ENCOUNTER → 2022-12-08 | Outpatient (REF) | payer MEDICARE, OTHER ==
[~2022-12-08] MED LIST changes: -K-TA10TA PO; +POTA-164 PO
[2022-12-08 18:48] LABS: BASO # 0.1 10^3/uL (0.0-0.2); BASO % 0.5 % (0.0-1.0); EOS # 0.2 10^3/uL (0.0-0.5); EOS % 2.4 % (0.0-3.0); HEMATOCRIT 48.2 % (42.0-52.0); HEMOGLOBIN 15.4 g/dl (13.5-17.5); LYMPH # 2.5 10^3/uL (1.5-5.0); LYMPH % 26.9 % (24.0-44.0); MEAN CORPUSCULAR HEMOGLOBIN 30.4 pg (27.0-33.0); MEAN CORPUSCULAR VOLUME 95.3 fl (80.0-96.0); MONO # 0.8 10^3/uL (0.0-0.8); NEUTROPHILS # 5.6 10^3/uL (1.5-8.5); NEUTROPHILS % 60.8 % (36.0-66.0); PLATELET COUNT, AUTOMATED 258 10^3/uL (150-450); RED BLOOD COUNT 5.06 10^6/uL (4.30-6.10); WHITE BLOOD COUNT 9.3 10^3/uL (4.0-10.0)
[2022-12-08 18:51] LABS: ALBUMIN 3.8 G/DL (3.2-5.2); ALKALINE PHOSPHATASE 96 U/L (46-116); ALT/SGPT 35 U/L (7.0-40); AST/SGOT < 8 U/L (<34); BILIRUBIN,TOTAL 0.7 MG/DL (0.3-1.2); BLOOD UREA NITROGEN 20 MG/DL (9-23); CALCIUM LEVEL 9.3 MG/DL (8.3-10.6); CARBON DIOXIDE LEVEL 32 MMOL/L (20-31); CHLORIDE LEVEL 102 MMOL/L (98-107); CHOLESTEROL LEVEL 180 MG/DL (<200); CHOLESTEROL RISK RATIO 3.73 (<5); CREATININE FOR GFR 0.82 MG/DL (0.70-1.30); GLOMERULAR FILTRATION RATE > 60.0 (>42); GLUCOSE, FASTING 111 MG/DL (74-106); HDL CHOLESTEROL 48.2 MG/DL (>40); LDL CHOLESTEROL 94.6 MG/DL (<100); NON-HDL-C 131.8 MG/DL; POTASSIUM SERUM 4.6 MMOL/L (3.5-5.1); SODIUM LEVEL 139 MMOL/L (136-145); TOTAL PROTEIN 6.8 G/DL (5.7-8.2); TRIGLYCERIDES LEVEL 186 MG/DL (<150)
[2022-12-08 18:55] LABS: THYROID STIMULATING HORMONE 1.695 uIU/ML (0.55-4.78)
[2022-12-08 18:56] LABS: FREE T4 1.07 NG/DL (0.89-1.76)
[2022-12-08 20:07] LABS: HEMOGLOBIN A1c 5.4 % (4.0-6.0)
== END ==
LOC: M SFHCCAPE 08:48
PROVIDERS: ATTEND Physician Assistant
DX: I10 Essential (primary) hypertension (principal); Z12.5 Encounter for screening for malignant neoplasm of prostate; R73.09 Other abnormal glucose
CPT/HCPCS: 80053; 80061; 83036; 84439; 84443; 85025; G0103

== ENCOUNTER → 2023-02-08 | Outpatient (REF) | payer MEDICARE, OTHER ==
[2023-02-08 18:17] LABS: BASO % 0.5 % (0.0-1.0); EOS # 0.2 10^3/uL (0.0-0.5); EOS % 2.1 % (0.0-3.0); HEMATOCRIT 48.1 % (42.0-52.0); HEMOGLOBIN 15.7 g/dl (13.5-17.5); LYMPH # 2.1 10^3/uL (1.5-5.0); LYMPH % 24.6 % (24.0-44.0); MEAN CORPUSCULAR HGB CONC 32.6 g/dl (32.0-36.5); MEAN CORPUSCULAR VOLUME 91.8 fl (80.0-96.0); MONO # 0.9 10^3/uL (0.0-0.8); MONO % 9.9 % (2.0-8.0); NEUTROPHILS # 5.4 10^3/uL (1.5-8.5); NEUTROPHILS % 62.4 % (36.0-66.0); PLATELET COUNT, AUTOMATED 293 10^3/uL (150-450); RED BLOOD COUNT 5.24 10^6/uL (4.30-6.10); WHITE BLOOD COUNT 8.7 10^3/uL (4.0-10.0)
[2023-02-08 18:41] LABS: DIGOXIN LEVEL 0.8 NG/ML (0.8-2.0)
[2023-02-08 18:43] LABS: ALBUMIN 3.6 G/DL (3.2-5.2); ALKALINE PHOSPHATASE 102 U/L (46-116); ALT/SGPT 24 U/L (7.0-40); AST/SGOT 15 U/L (<34); BILIRUBIN,TOTAL 0.8 MG/DL (0.3-1.2); BLOOD UREA NITROGEN 21 MG/DL (9-23); CALCIUM LEVEL 9.4 MG/DL (8.3-10.6); CARBON DIOXIDE LEVEL 29 MMOL/L (20-31); CHLORIDE LEVEL 102 MMOL/L (98-107); CREATININE FOR GFR 0.88 MG/DL (0.70-1.30); FREE T4 1.22 NG/DL (0.89-1.76); GLOMERULAR FILTRATION RATE > 60.0 (>42); GLUCOSE, FASTING 105 MG/DL (74-106); POTASSIUM SERUM 4.3 MMOL/L (3.5-5.1); SODIUM LEVEL 139 MMOL/L (136-145); TOTAL PROTEIN 6.8 G/DL (5.7-8.2)
[2023-02-08 18:44] LABS: THYROID STIMULATING HORMONE 1.326 uIU/ML (0.55-4.78); VITAMIN B12 LEVEL 466 PG/ML (211-911)
== END ==
LOC: M SFHCCAPE 09:38
PROVIDERS: ATTEND Physician Assistant Medical
DX: R53.83 Other fatigue (principal); I42.9 Cardiomyopathy, unspecified

== ENCOUNTER → 2023-02-28 | Outpatient (REF) | payer MEDICARE, OTHER ==
[2023-02-28 19:44] LABS: BLOOD UREA NITROGEN 19 MG/DL (9-23); CALCIUM LEVEL 8.6 MG/DL (8.3-10.6); CARBON DIOXIDE LEVEL 28 MMOL/L (20-31); CHLORIDE LEVEL 106 MMOL/L (98-107); CREATININE FOR GFR 0.94 MG/DL (0.70-1.30); GLOMERULAR FILTRATION RATE > 60.0 (>42); GLUCOSE, FASTING 116 MG/DL (74-106); POTASSIUM SERUM 4.3 MMOL/L (3.5-5.1); SODIUM LEVEL 141 MMOL/L (136-145)
== END ==
LOC: M LABDRWCV 17:18
PROVIDERS: ATTEND Physician Assistant
DX: I42.8 Other cardiomyopathies (principal)

== ENCOUNTER → 2023-06-15 | Outpatient (REF) | payer MEDICARE, OTHER ==
[2023-06-15 17:27] LABS: BASO # 0.1 10^3/uL (0.0-0.2); BASO % 0.6 % (0.0-1.0); EOS # 0.1 10^3/uL (0.0-0.5); EOS % 1.4 % (0.0-3.0); HEMATOCRIT 45.9 % (42.0-52.0); HEMOGLOBIN 14.9 g/dl (13.5-17.5); LYMPH % 23.4 % (24.0-44.0); MEAN CORPUSCULAR HEMOGLOBIN 30.6 pg (27.0-33.0); MEAN CORPUSCULAR HGB CONC 32.5 g/dl (32.0-36.5); MEAN CORPUSCULAR VOLUME 94.3 fl (80.0-96.0); MONO # 0.7 10^3/uL (0.0-0.8); MONO % 8.4 % (2.0-8.0); NEUTROPHILS # 5.7 10^3/uL (1.5-8.5); NEUTROPHILS % 65.6 % (36.0-66.0); PLATELET COUNT, AUTOMATED 265 10^3/uL (150-450); RED BLOOD COUNT 4.87 10^6/uL (4.30-6.10); WHITE BLOOD COUNT 8.7 10^3/uL (4.0-10.0)
[2023-06-15 17:44] LABS: HEMOGLOBIN A1c 5.6 % (4.0-6.0)
[2023-06-15 17:50] LABS: ALBUMIN 3.4 G/DL (3.2-5.2); ALKALINE PHOSPHATASE 89 U/L (46-116); ALT/SGPT 23 U/L (7.0-40); AST/SGOT 14 U/L (<34); BILIRUBIN,TOTAL 0.6 MG/DL (0.3-1.2); BLOOD UREA NITROGEN 24 MG/DL (9-23); CALCIUM LEVEL 8.7 MG/DL (8.3-10.6); CARBON DIOXIDE LEVEL 32 MMOL/L (20-31); CHLORIDE LEVEL 105 MMOL/L (98-107); CREATININE FOR GFR 1.09 MG/DL (0.70-1.30); GLOMERULAR FILTRATION RATE > 60.0 (>42); GLUCOSE, FASTING 121 MG/DL (74-106); POTASSIUM SERUM 4.7 MMOL/L (3.5-5.1); SODIUM LEVEL 140 MMOL/L (136-145); TOTAL PROTEIN 6.3 G/DL (5.7-8.2)
== END ==
LOC: M SFHCCAPE 08:16
PROVIDERS: ATTEND Physician Assistant Medical
DX: F41.8 Other specified anxiety disorders (principal); Z13.1 Encounter for screening for diabetes mellitus; Z79.899 Other long term (current) drug therapy

== ENCOUNTER → 2023-08-21 | Outpatient (REF) | payer MEDICARE, OTHER ==
[2023-08-21 17:39] LABS: BASO # 0.1 10^3/uL (0.0-0.2); BASO % 0.5 % (0.0-1.0); EOS # 0.1 10^3/uL (0.0-0.5); EOS % 0.9 % (0.0-3.0); HEMATOCRIT 45.1 % (42.0-52.0); HEMOGLOBIN 14.9 g/dl (13.5-17.5); LYMPH # 2.3 10^3/uL (1.5-5.0); LYMPH % 21.3 % (24.0-44.0); MEAN CORPUSCULAR HEMOGLOBIN 31.2 pg (27.0-33.0); MEAN CORPUSCULAR VOLUME 94.4 fl (80.0-96.0); MONO # 0.9 10^3/uL (0.0-0.8); MONO % 7.9 % (2.0-8.0); NEUTROPHILS # 7.6 10^3/uL (1.5-8.5); PLATELET COUNT, AUTOMATED 283 10^3/uL (150-450); RED BLOOD COUNT 4.78 10^6/uL (4.30-6.10)
[2023-08-21 18:03] LABS: ALBUMIN 3.3 G/DL (3.2-5.2); ALKALINE PHOSPHATASE 82 U/L (46-116); ALT/SGPT 21 U/L (7.0-40); AST/SGOT 17 U/L (<34); BILIRUBIN,TOTAL 0.7 MG/DL (0.3-1.2); BLOOD UREA NITROGEN 18 MG/DL (9-23); CALCIUM LEVEL 8.6 MG/DL (8.3-10.6); CARBON DIOXIDE LEVEL 28 MMOL/L (20-31); CHLORIDE LEVEL 106 MMOL/L (98-107); CHOLESTEROL LEVEL 151 MG/DL (<200); CHOLESTEROL RISK RATIO 3.93 (<5); CREATININE FOR GFR 0.85 MG/DL (0.70-1.30); FREE T4 1.04 NG/DL (0.89-1.76); GLOMERULAR FILTRATION RATE > 60.0 (>42); GLUCOSE, FASTING 102 MG/DL (74-106); HDL CHOLESTEROL 38.4 MG/DL (>40); LDL CHOLESTEROL 82.4 MG/DL (<100); MAGNESIUM LEVEL 1.8 MG/DL (1.8-2.4); NON-HDL-C 112.6 MG/DL; SODIUM LEVEL 140 MMOL/L (136-145); THYROID STIMULATING HORMONE 0.821 uIU/ML (0.55-4.78); TOTAL PROTEIN 6.2 G/DL (5.7-8.2); TRIGLYCERIDES LEVEL 151 MG/DL (<150)
== END ==
LOC: M SFHCCAPE 14:06
PROVIDERS: ATTEND Physician Assistant Medical
DX: R53.82 Chronic fatigue, unspecified (principal); I50.9 Heart failure, unspecified; R19.7 Diarrhea, unspecified

== ENCOUNTER → 2023-11-21 | Outpatient (REF) | payer MEDICARE, OTHER ==
[~2023-11-21] MED LIST changes: +ROSU5TAB40 PO; -ROSU5TAB5 PO
== END ==
LOC: M SFHCCAPE 11:14
PROVIDERS: ATTEND Physician Assistant Medical
DX: R19.7 Diarrhea, unspecified (principal)

== ENCOUNTER → 2023-11-22 | Outpatient (REF) | payer MEDICARE, OTHER ==
[2023-11-22 19:04] LABS: BASO % 0.5 % (0.0-1.0); EOS % 0.5 % (0.0-3.0); HEMATOCRIT 43.1 % (42.0-52.0); HEMOGLOBIN 14.1 g/dl (13.5-17.5); LYMPH # 2.2 10^3/uL (1.5-5.0); LYMPH % 24.3 % (24.0-44.0); MEAN CORPUSCULAR HEMOGLOBIN 29.8 pg (27.0-33.0); MEAN CORPUSCULAR HGB CONC 32.7 g/dl (32.0-36.5); MEAN CORPUSCULAR VOLUME 91.1 fl (80.0-96.0); MONO # 0.7 10^3/uL (0.0-0.8); MONO % 7.9 % (2.0-8.0); NEUTROPHILS # 5.9 10^3/uL (1.5-8.5); NEUTROPHILS % 66.3 % (36.0-66.0); PLATELET COUNT, AUTOMATED 317 10^3/uL (150-450); RED BLOOD COUNT 4.73 10^6/uL (4.30-6.10); WHITE BLOOD COUNT 8.8 10^3/uL (4.0-10.0)
[2023-11-22 19:23] LABS: ALKALINE PHOSPHATASE 86 U/L (46-116); ALT/SGPT 19 U/L (7.0-40); AST/SGOT 10 U/L (<34); BILIRUBIN,TOTAL 0.6 MG/DL (0.3-1.2); BLOOD UREA NITROGEN 15 MG/DL (9-23); CALCIUM LEVEL 8.6 MG/DL (8.3-10.6); CARBON DIOXIDE LEVEL 30 MMOL/L (20-31); CHLORIDE LEVEL 106 MMOL/L (98-107); GLOMERULAR FILTRATION RATE > 60.0 (>42); GLUCOSE, FASTING 136 MG/DL (74-106); POTASSIUM SERUM 3.8 MMOL/L (3.5-5.1); SODIUM LEVEL 144 MMOL/L (136-145); TOTAL PROTEIN 5.9 G/DL (5.7-8.2)
[2023-11-22 19:26] LABS: ERYTHROCYTE SEDIMENTATION RATE 25 mm/hr (0-20)
[2023-11-22 21:14] LABS: HEMOGLOBIN A1c 5.6 % (4.0-6.0)
== END ==
LOC: M SFHCCAPE 10:45
PROVIDERS: ATTEND Physician Assistant Medical
DX: F41.8 Other specified anxiety disorders (principal); I50.9 Heart failure, unspecified; K21.9 Gastro-esophageal reflux disease without esophagitis; R73.01 Impaired fasting glucose; R19.7 Diarrhea, unspecified

== ENCOUNTER → 2024-04-23 | Outpatient (REF) | payer MEDICARE, OTHER ==
[~2024-04-23] MED LIST changes: -ROSU5TAB40 PO; +ROSU5TAB49 PO
[2024-04-23 18:21] LABS: BASO # 0.1 10^3/uL (0.0-0.2); BASO % 0.6 % (0.0-1.0); EOS # 0.1 10^3/uL (0.0-0.5); EOS % 1.4 % (0.0-3.0); HEMATOCRIT 46.5 % (42.0-52.0); LYMPH # 2.2 10^3/uL (1.5-5.0); LYMPH % 25.8 % (24.0-44.0); MEAN CORPUSCULAR HEMOGLOBIN 30.5 pg (27.0-33.0); MEAN CORPUSCULAR HGB CONC 32.3 g/dl (32.0-36.5); MEAN CORPUSCULAR VOLUME 94.7 fl (80.0-96.0); MONO # 0.7 10^3/uL (0.0-0.8); MONO % 8.1 % (2.0-8.0); NEUTROPHILS # 5.5 10^3/uL (1.5-8.5); NEUTROPHILS % 63.8 % (36.0-66.0); PLATELET COUNT, AUTOMATED 253 10^3/uL (150-450); RED BLOOD COUNT 4.91 10^6/uL (4.30-6.10); WHITE BLOOD COUNT 8.6 10^3/uL (4.0-10.0)
[2024-04-23 18:52] LABS: ALBUMIN 3.3 G/DL (3.2-5.2); ALKALINE PHOSPHATASE 82 U/L (40-129); ALT/SGPT 26 U/L (7.0-40); AST/SGOT 15 U/L (<34); BILIRUBIN,TOTAL 0.9 MG/DL (0.3-1.2); BLOOD UREA NITROGEN 22 MG/DL (9-23); CALCIUM LEVEL 9.1 MG/DL (8.3-10.6); CARBON DIOXIDE LEVEL 32 MMOL/L (20-31); CHLORIDE LEVEL 104 MMOL/L (98-107); CHOLESTEROL LEVEL 177 MG/DL (<200); CHOLESTEROL RISK RATIO 4.06 (<5); CREATININE FOR GFR 0.91 MG/DL (0.70-1.30); GLOMERULAR FILTRATION RATE > 60.0 (>42); GLUCOSE, FASTING 120 MG/DL (74-106); HDL CHOLESTEROL 43.5 MG/DL (>40); LDL CHOLESTEROL 108.3 MG/DL (<100); NON-HDL-C 133.5 MG/DL; POTASSIUM SERUM 4.3 MMOL/L (3.5-5.1); PSA SCREENING 1.62 NG/ML (< 4.00); SODIUM LEVEL 140 MMOL/L (136-145); TOTAL PROTEIN 6.9 G/DL (5.7-8.2); TRIGLYCERIDES LEVEL 126 MG/DL (<150)
== END ==
LOC: M SFHCCAPE 09:48
PROVIDERS: ATTEND Physician Assistant Medical
DX: K21.9 Gastro-esophageal reflux disease without esophagitis (principal); K52.831 Collagenous colitis; Z12.5 Encounter for screening for malignant neoplasm of prostate; F41.8 Other specified anxiety disorders; I50.9 Heart failure, unspecified; I48.91 Unspecified atrial fibrillation
CPT/HCPCS: 36415; 80053; 80061; 85025; G0103

== ENCOUNTER → 2024-08-20 | Outpatient (REF) | payer MEDICARE, OTHER ==
[2024-08-20 18:14] LABS: BASO # 0.1 10^3/uL (0.0-0.2); BASO % 0.6 % (0.0-1.0); EOS # 0.2 10^3/uL (0.0-0.5); EOS % 1.8 % (0.0-3.0); HEMATOCRIT 45.7 % (42.0-52.0); HEMOGLOBIN 14.8 g/dl (13.5-17.5); LYMPH # 2.6 10^3/uL (1.5-5.0); LYMPH % 25.9 % (24.0-44.0); MEAN CORPUSCULAR HEMOGLOBIN 30.3 pg (27.0-33.0); MEAN CORPUSCULAR HGB CONC 32.4 g/dl (32.0-36.5); MEAN CORPUSCULAR VOLUME 93.6 fl (80.0-96.0); MONO # 0.8 10^3/uL (0.0-0.8); MONO % 7.9 % (2.0-8.0); NEUTROPHILS # 6.3 10^3/uL (1.5-8.5); NEUTROPHILS % 63.2 % (36.0-66.0); PLATELET COUNT, AUTOMATED 248 10^3/uL (150-450); RED BLOOD COUNT 4.88 10^6/uL (4.30-6.10); WHITE BLOOD COUNT 9.9 10^3/uL (4.0-10.0)
[2024-08-20 18:17] LABS: ALBUMIN 3.4 G/DL (3.2-5.2); ALKALINE PHOSPHATASE 101 U/L (40-129); ALT/SGPT 38 U/L (7.0-40); AST/SGOT 21 U/L (<34); BILIRUBIN,TOTAL 0.6 MG/DL (0.3-1.2); BLOOD UREA NITROGEN 26 MG/DL (9-23); CARBON DIOXIDE LEVEL 31 MMOL/L (20-31); CHLORIDE LEVEL 104 MMOL/L (98-107); CREATININE FOR GFR 0.92 MG/DL (0.70-1.30); GLOMERULAR FILTRATION RATE > 60.0 (>42); GLUCOSE, FASTING 110 MG/DL (74-106); POTASSIUM SERUM 4.6 MMOL/L (3.5-5.1); SODIUM LEVEL 143 MMOL/L (136-145); TOTAL PROTEIN 6.7 G/DL (5.7-8.2)
== END ==
LOC: M SFHCCAPE 09:00
PROVIDERS: ATTEND Physician Assistant Medical
DX: F41.8 Other specified anxiety disorders (principal); I50.9 Heart failure, unspecified

== ENCOUNTER → 2024-09-06 | Outpatient (CLI) | payer MEDICARE, OTHER | LOC: M PLARAD 12:23 | PROVIDERS: ATTEND Ophthalmology | DX: H53.2 Diplopia (principal) ==

== ENCOUNTER → 2025-02-12 | Outpatient (REF) | payer MEDICARE, OTHER ==
[2025-02-12 17:30] LABS: PSA SCREENING 1.71 NG/ML (< 4.00)
[2025-02-12 17:33] LABS: ALT/SGPT 30 U/L (7.0-40); AST/SGOT 28 U/L (<34); CALCIUM LEVEL 9.4 MG/DL (8.3-10.6); CARBON DIOXIDE LEVEL 31 MMOL/L (20-31); CHLORIDE LEVEL 100 MMOL/L (98-107); CHOLESTEROL LEVEL 163 MG/DL (<200); CHOLESTEROL RISK RATIO 3.32 (<5); CREATININE FOR GFR 0.92 MG/DL (0.70-1.30); GLOMERULAR FILTRATION RATE 84.6 (>42); LDL CHOLESTEROL 85.0 MG/DL (<100); NON-HDL-C 114.0 MG/DL; POTASSIUM SERUM 4.3 MMOL/L (3.5-5.1); SODIUM LEVEL 143 MMOL/L (136-145); TRIGLYCERIDES LEVEL 145 MG/DL (<150)
[2025-02-12 17:34] LABS: BASO # 0.1 10^3/uL (0.0-0.2); BASO % 0.5 % (0.0-1.0); EOS # 0.2 10^3/uL (0.0-0.5); EOS % 1.8 % (0.0-3.0); LYMPH # 2.9 10^3/uL (1.5-5.0); LYMPH % 28.2 % (24.0-44.0); MONO # 0.9 10^3/uL (0.0-0.8); MONO % 9.1 % (2.0-8.0); NEUTROPHILS # 6.1 10^3/uL (1.5-8.5); NEUTROPHILS % 59.6 % (36.0-66.0); PLATELET COUNT, AUTOMATED 304 10^3/uL (150-450); TOTAL 25(OH) VITAMIN D 126.8 NG/ML (20.0-100.0)
[2025-02-12 17:35] LABS: FREE T4 1.20 NG/DL (0.89-1.76); VITAMIN B12 LEVEL 525 PG/ML (211-911)
[2025-02-12 17:41] LABS: APPEARANCE, URINE CLEAR (CLEAR); BACTERIA, URINE AUTO NEGATIVE (NEGATIVE); BILIRUBIN, URINE AUTO NEGATIVE (NEGATIVE); BLOOD, URINE BLOOD NEGATIVE (NEGATIVE); GLUCOSE, URINE (UA) AUTO NEGATIVE (NEGATIVE); KETONE, URINE AUTO NEGATIVE (NEGATIVE); LEUKOCYTE ESTERASE, URINE AUTO NEGATIVE (NEGATIVE); MUCUS, URINE SMALL (NEGATIVE); NITRITE, URINE AUTO NEGATIVE (NEGATIVE); PROTEIN, URINE AUTO NEGATIVE (NEGATIVE); RBC, URINE AUTO 1 /HPF (0-3); SPECIFIC GRAVITY URINE AUTO 1.008 (1.002-1.035); SQUAMOUS EPITHELIAL CELL UR AU 0 /HPF (0-6); UROBILINOGEN, URINE AUTO 0.2 mg/dL (0.0-2.0); WBC, URINE AUTO 0 /HPF (0-3)
[2025-02-12 18:19] LABS: ESTIMATED AVERAGE GLUCOSE 120.0 MG/DL (60-110)
== END ==
LOC: M SFHCCAPE 11:36
PROVIDERS: ATTEND Physician Assistant Medical
DX: I50.9 Heart failure, unspecified (principal); E78.5 Hyperlipidemia, unspecified; Z12.5 Encounter for screening for malignant neoplasm of prostate; R63.1 Polydipsia; F41.8 Other specified anxiety disorders
CPT/HCPCS: 80053; 80061; 81001; 82306; 82607; 82746; 83036; 84439; 84443; 85025; G0103